=== PATIENT | male | born 1950 | race Caucasian/White ===

== ENCOUNTER 2021-02-18 17:51 | Observation (INO) | payer OTHER ==
--- OUTSIDE RECORDS SUMMARY | 2021-02-18 17:53 | XMS REPORT | Continuity of Care Document ---
:1950 Author Organization [facility] t Address [address] [place] [address] Care Team Providers Name Role Phone Unavailable Unavailable Unavailable Problems Condition Condition Condition Status Onset Resolution Last Treating Co mments Source Name Details Category Date Date Treatment Clinician Date Seasonal Seasonal Problem [facility] Chronic Chronic Problem Active [facility] kidney kidney [facility] - disease, disease, Memori a unspecifie unspecifie l d CKD d CKD Outpati stage stage ent Clinics Anal Anal Problem [facility] Prediabete Prediabete Problem Active [facility] Hypertensi Hypertensi Problem Active [facility] on, on, [facility] - unspecifie unspecifie Me moria d type d type l [facility] Bilateral Bilateral Problem Active [facility] low back low back [facility] - pain pain Memoria without without l sciatica, sciatica, Outp ati unspecifie unspecifie en t d d Clinics chronicity chronicity Snoring Snoring Problem Active [facility]ics Skin Skin Problem Active [facility] lesion lesion [facility] Hyperglyce Hyperglyce Problem Active [facility] jamir jamir [facility] Rash and Rash and Problem Active [facility] nonspecifi nonspecifi [facility] - c skin c skin Memoria eruption eruption l [facility] Hyperchole Hyperchole Problem Active [facility] sterolemia sterolemia [facility] k[facility] - [facility] History of History of Problem Active [facility] kidney kidney [facility] - stones stones [facility] Hepatitis Hepatitis Problem Active [facility] B [facility] Sinus Sinus Problem Active [facility] problem problem [facility] Induration Induration Diagnosis Active [facility] penis penis [facility] plastica plastica [facility] Benign Benign Diagnosis Active [facility] prostatic prostatic Luke s - hyperplasi hyperplasi Me moria a without a without l lower lower [facility] symptoms symptoms ED ED Problem Active [facility] (erectile (erectile Luke s - dysfunctio dysfunctio Me moria n) n) l [facility] Allergies, Adverse Reactions, Alerts This patient has no known allergies or adverse reactions. Medications Ordered Filled Start Stop Current Ordering Indication Dosage Frequency Signature Comments Components Source Medication Medication Date Date Medication? Clinician (SIG) Name Name Jhon Ferreira Yes Adeline [address] [facility] ne ne 12-18 [place] applicatio [facility] - Acetonide Acetonide 00:00: n to Mem oria 00 affected l area [facility] Metoprolol Metoprolol Yes Adeline [address] [facility] Succinate Succinate Con[place] L ukes - ER ER Memoria l [facility] Tessalon Tessalon Yes Adeline [address] Perles Perles Julia as needed [facility] - [facility] Levofloxaci Levofloxaci Yes Adeline [address] [facility] n n Julia [facility] Atorvastati Atorvastati Yes Adeline [address] [facility] n Calcium n Calcium Julia in evening [facility] ProAir HFA ProAir HFA Yes Adeline [address] [facility] [place] needed [facility] Amlodipine Amlodipine Yes Adeline [address] [facility] [address] Besylate Besylate Julia Chantal es - [facility] Lisinopril- Lisinopril- Yes Adeline [address] [facility] [address] Hydrochloro Hydrochloro Julia [facility] - thiazide thiazide [facility] Procedures This patient has no known procedures. Encounters Start End Encounter Admission Attending Care Care Encounter Source Date/Time Date/Time Type Type Clinicians Facility Department ID 2019-08-18 2019-08-18 [facility] [id number] [facility] 14:[facility]00 14:00:00 t Specialty/U B[facility] - Specialty rology Memori a /Urology Clinic l Clinic Outpati ent Clinics 2018-11-24 2018-11-24 Outpatient Sj Machado [id number] [facility] 13[facility] 13[facility]40[facility]00 [facility] Results This patient has no known results.
[2021-02-18 18:44] LABS: Absolute Lymphocytes (CBC) 2.1 K/uL (0.7-4.9); Basophils % 0.1 % (0-1.3); Hematocrit 43.2 % (39.6-49.0); MPV 7.7 fL (7.6-11.3); RBC Red Blood Cell Count 4.74 M/uL (4.33-5.43)
[2021-02-18 18:48] LABS: Protime INR 0.97
[2021-02-18] MEDS ORDERED: AMLODIPINE 5 MG TAB ONE (18:55)
--- NOTE | 2021-02-18 19:11 | RAD REPORT ---
EXAM DESCRIPTION: RAD - Chest Single View - 02/18/2021 6:31 pm CLINICAL HISTORY: weakness, shortness of breath COMPARISON: February 2017 TECHNIQUE: AP portable chest image was obtained 02/18/2021 6:31 pm . FINDINGS: Lungs are clear of focal finding. Interstitial pattern matches comparison. No hilar mass o r lymphadenopathy. Heart size has enlarged from prior imaging but without acute vascular engorgement. No measurable pleural effusion and no pneumothorax. No acute bony abnormality seen. No acute aortic findings suspected. IMPRESSION: No peripheral mass or consolidation. Interstitial pattern matches comparison. Cardiac silhouette is enlarged from prior imaging but still within normal range. Significant failure or volume overload not suspected.
[2021-02-18 19:15] LABS: ALT/SGPT 21 U/L (12-78); AST/SGOT 17 U/L (15-37); Albumin 4.1 g/dL (3.4-5.0); Alkaline Phosphatase 82 U/L (45-117); BUN Blood Urea Nitrogen 13 mg/dL (7-18); Bicarbonate 26 mmol/L (21-32); Bilirubin Direct 0.1 mg/dL (0-0.2); Bilirubin Total 0.4 mg/dL (0.2-1.0); Creatine Phosphokinase 205 U/L (39-308); Glucose Level 97 mg/dL (74-106); Magnesium 2.3 mg/dL (1.8-2.4); NT PRO-BNP 442 pg/mL (<125); Potassium 3.7 mmol/L (3.5-5.1); Protein, Total 7.8 g/dL (6.4-8.2); Sodium Level 143 mmol/L (136-145); Troponin (Emerg Dept Use Only) < 0.02 ng/mL (0.0-0.045)
--- NOTE | 2021-02-18 19:44 | RAD REPORT ---
EXAM DESCRIPTION: CT - Head Brain Wo Cont - 02/18/2021 7:22 pm CLINICAL HISTORY: DIZZINESS COMPARISON: Head angio dated 10/26/2020; Neck Angio dated 10/26/2020 TECHNIQUE: Axial 5 mm thick images of the head were obtained without IV contrast. All CT scans are performed using dose optimization technique as appropriate and may include automated exposure control or mA/KV adjustment according to patient size. FINDINGS: No intracranial hemorrhage, mass, edema or shift of mid-line structures. No acute cortical based infarction. No cortical edema or sulcal effacement. Atrophy changes are mild to moderate for a ge. Cerebral white matter chronic ischemic change is advanced. Chronic ischemic changes are seen in t he basal ganglia, left thalamus in the brainstem. No abnormal extra-axial fluid collections. Ventricl es are in proportion to the volume loss. Dense arterial tree calcifications are present. Mastoid air cells and visualized portions of the paranasal sinuses are clear. No acute bony findings. IMPRESSION: Negative non-contrast CT head examination acute finding. Atrophy changes are present up to moderate in severity with advanced chronic ischemic change as detai led. Chronic ischemic changes can mask nonhemorrhagic acute infarction. MR brain followup can be obtained if there is ongoing concern for acute ischemia.
--- NOTE | 2021-02-18 20:32 | EDPHYS ---
Physician Documentation [facility] Name: José Miguel Arzate Age: 70 yrs Sex: Male : 1950 Arrival Date: 02/18/2021 Time: 17:53 Bed 16 Private MD: ED Physician Ji Henning HPI: 02/18 18:03 This 70 yrs old Male presents to ER via Wheelchair with complaints of jmm Numbness - r side. 18:03 The patient's problem is reported as a facial droop, on right. Onset: The jmm symptoms/episode began/occurred gradually, 1 day(s) ago. Duration: This was a single incident. The symptoms are alleviated by nothing. The symptoms are aggravated by nothing. States Dangelo is a 70-year-old male with history of hypertension the presents emerged part with complaints of right-sided numbness and difficulty walking which occurred when he awoke from sleep around 4 AM on Thursday morning. Had to lean against the wall because he had the sensation that something was under his right foot. Patient states having continued mild weakness on the right side of his body. Since then.. Historical: - Allergies: 18:00 No Known Allergies; tw2 - Home Meds: 18:00 losartan oral [Active]; tw2 - PMHx: 18:00 Hypertensive disorder; tw2 - Immunization history:: Client reports receiving the 2nd dose of the Covid vaccine. - Social history:: Smoking status: Reported history of juuling and/or vaping. ROS: 18:03 Constitutional: Negative for fever, chills, and weight loss, Cardiovascular: Negative jmm for chest pain, palpitations, and edema, Respiratory: Negative for shortness of breath, cough, wheezing, and pleuritic chest pain. 18:03 Neuro: Positive for weakness. 18:03 All other systems are negative. Exam: 18:03 Radiologist reports: Negative CT jmm 18:03 Constitutional: This is a well developed, well nourished patient who is awake, alert, and in no acute distress. Head/Face: atraumatic. Eyes: EOMI, no conjunctival erythema appreciated ENT: Moist Mucus Membranes Neck: Trachea midline, Supple Chest/axilla: Normal chest wall appearance and motion. Cardiovascular: Regular rate and rhythm. No edema appreciated Respiratory: Normal respirations, no respiratory distress appreciated Abdomen/GI: Non distended, soft Back: Normal ROM Skin: General appearance color normal 18:03 Musculoskeletal/extremity: ROM: intact in all extremities. 18:03 Neuro: Orientation: is normal, Mentation: is normal, Memory: is normal, Cerebellar function: normal finger to nose testing. Vital Signs: 18:03 BP 215 / 110 LA; Pulse 67; Resp 18; Temp 98.8(TE); Pulse Ox 99% on R/A; Pain 0/10; tw2 18:03 BP 215 / 114 RA; tw2 18:59 BP 204 / 101; Pulse 64; Resp 17; Pulse Ox 98% on R/A; jt3 19:09 Weight 68.04 kg; jt3 19:42 BP 211 / 106; Pulse 54; Resp 18; Temp 98.8; Pulse Ox 99% on R/A; Pain 0/10; kc4 20:45 BP 217 / 107; Pulse 68; Resp 20; Temp 98.8(O); Pulse Ox 100% on R/A; Pain 0/10; kc4 21:20 BP 204 / 90; Pulse 52; Resp 18; Temp 98.7(O); Pulse Ox 100% ; Pain 0/10; kc4 22:06 BP 196 / 97; Pulse 56; Resp 18; Temp 98.7; Pulse Ox 100% on R/A; Pain 0/10; kc4 18:03 provider notified of vs and triage notes tw2 19:42 Provider Mickail notified of bp. pt denies any pain kc4 NIH Stroke Scale Scores: 18:03 NIHSS Score: 2 [facility] 18:50 NIHSS Score: 3 jt3 MDM: 18:35 Patient medically screened. [facility] 20:30 Data reviewed: vital signs, nurses notes. [facility] 20:30 Counseling: I had a detailed discussion with the patient and/or guardian regarding: the [facility] historical points, exam findings, and any diagnostic results supporting the discharge/admit diagnosis, lab results, radiology results, the need for further work-up and treatment in the hospital. ED course: I discussed the patient with Ms. Jose PA-C whom accepted the patient to Dr. Aurea granger. I did not administer TPA due to timeframe of the symptom.. 02/18 18:12 Order name: CBC with Diff; Complete Time: 18:54 rn 02/18 18:12 Order name: Protime (+inr); Complete Time: 18:54 02/18 18:12 Order name: Ptt, Activated; Complete Time: 18:54 / 18:13 Order name: Basic Metabolic Panel; Complete Time: 19:17 [facility] 02/18 18:13 Order name: CBC with Diff; Complete Time: 16:55 [facility] 02/18 18:13 Order name: LFT's; Complete Time: 19:17 [facility] 02/18 18:13 Order name: Magnesium; Complete Time: 19:17 [facility] 02/18 18:13 Order name: NT PRO-BNP; Complete Time: 19:17 [facility] 02/18 18:13 Order name: PT-INR; Complete Time: 16:55 [facility] 02/18 18:13 Order name: Troponin (emerg Dept Use Only); Complete Time: 19:17 [facility] 02/18 18:45 Order name: Creatine Phosphokinase; Complete Time: 19:17 [facility] 02/18 18:02 Order name: CT Head Brain wo Cont; Complete Time: 19:48 [facility] 02/18 18:12 Order name: EKG; Complete Time: 18:13 / 18:12 Order name: Accucheck; Complete Time: 18:54 15 18:12 Order name: Cardiac monitoring; Complete Time: 18:34 /15 18:12 Order name: EKG - Nurse/Tech; Complete Time: 18:54 /15 18:12 Order name: IV Saline Lock; Complete Time: 18:34 02/18 18:12 Order name: Labs collected and sent; Complete Time: 18:34 15 18:12 Order name: NPO; Complete Time: 18:34 02/18 18:13 Order name: XRAY Chest (1 view); Complete Time: 19:16 [facility] 02/18 18:13 Order name: EKG; Complete Time: 18:13 [facility] 02/18 18:49 Order name: Glucose, Ancillary Testing; Complete Time: 18:54 [facility] 02/18 20:07 Order name: CONS Physician Consult; Complete Time: 21:33 [facility] 02/18 20:15 Order name: SARS-COV-2 RT PCR (Document "Date of Onset" if Symptomatic); Complete Time: [facility] 16:55 02/18 18:12 Order name: O2 Per Protocol; Complete Time: 18:34 rn 02/18 18:12 Order name: O2 Sat Monitoring; Complete Time: 18:34 rn 02/18 18:12 Order name: Stroke Swallow Screen; Complete Time: 18:34 rn 02/18 18:13 Order name: Cardiac monitoring; Complete Time: 18:33 [facility] 02/18 18:13 Order name: EKG - Nurse/Tech; Complete Time: 18:36 [facility] 02/18 18:13 Order name: IV Saline Lock; Complete Time: 18:33 [facility] 02/18 18:13 Order name: Labs collected and sent; Complete Time: 18:33 [facility] 02/18 18:13 Order name: O2 Per Protocol; Complete Time: 18:33 [facility] 02/18 18:13 Order name: O2 Sat Monitoring; Complete Time: 18:33 [facility] Administered Medications: 18:59 Drug: Norvasc (amlodipine) 5 mg Route: PO; jt3 19:17 Follow up: Response: No adverse reaction jt3 19:46 Follow up: Response: No adverse reaction; Blood pressure is unchanged kc4 20:44 Drug: Aspirin Chewable Tablet 324 mg Route: PO; kc4 22:17 Follow up: Response: No adverse reaction kc4 20:45 Drug: foLIC Acid 1 mg Route: IVPB; Site: right antecubital; kc4 22:16 Follow up: IV Status: Completed infusion kc4 22:17 Follow up: Response: No adverse reaction kc4 Disposition: 02/19 07:04 Co-signature as Attending Physician, Ji Henning MD I agree with the assessment and rn plan of care. Attestation: The patient's history, exam findings, diagnostics, and a summary of any interventions or procedures was reviewed in detail with Anselmo MERINO. Disposition Summary: 02/18/21 20:31 Hospitalization Ordered Hospitalization Status: Inpatient Admission [facility] Provider: Pérez Villar Location: Telemetry/MedSurg (Inpatient) [facility] Condition: Stable jm Problem: new jmm Symptoms: are unchanged jmm Bed/Room Type: Standard [facility] Room Assignment: 217(02/18/21 21:44) Diagnosis - Cerebral infarction, unspecified [facility] Forms: - Medication Reconciliation Form m - SBAR form [facility] NIH Stroke Scale - NIH Stroke Score Date: 02/18/2021 Time: 18:03 Total Score = 2 1a. Level of Consciousness (LOC) - 0(Alert) 1b. Level of Consciousness (LOC) (Month \\T\\ Age) - 0(Both) 1c. LOC Commands (Open \\T\\ Closes Eyes/Tracer Powder Blender) - 0(Both) 2. Best Gaze (Lateral Gaze Paresis) - 0(Normal) 3. Visual Field Loss - 0(No visual loss) 4. Facial Palsy - 0(Normal) 5a. Left Arm: Motor (10-second hold) - 0(No drift) 5b. Right Arm: Motor (10-second hold) - 1(Drift) 6a. Left Leg: Motor (5-second hold - always test supine) - 0(No drift) 6b. Right Leg: Motor (5-second hold - always test supine) - 1(Drift) 7. Limb Ataxia (finger/nose \\T\\ heel/mathews - test with eyes open) - 0(Absent) 8. Sensory Loss (pinprick arms/legs/face) - 0(Normal) 9. Best Language: Aphasia (description/naming/reading) - 0(No aphasia) 10. Dysarthria (speech clarity - read or repeat words) - 0(Normal) 11. Extinction and Inattention (visual/tactile/auditory/spatial/personal) - 0(No abnormality) Initials: [facility] NIH Stroke Scale - NIH Stroke Score Date: 02/18/2021 Time: 18:50 Total Score = 3 1a. Level of Consciousness (LOC) - 0(Alert) 1b. Level of Consciousness (LOC) (Month \\T\\ Age) - 0(Both) 1c. LOC Commands (Open \\T\\ Closes Eyes/Tracer Powder Blender) - 0(Both) 2. Best Gaze (Lateral Gaze Paresis) - 0(Normal) 3. Visual Field Loss - 0(No visual loss) 4. Facial Palsy - 0(Normal) 5a. Left Arm: Motor (10-second hold) - 0(No drift) 5b. Right Arm: Motor (10-second hold) - 1(Drift) 6a. Left Leg: Motor (5-second hold - always test supine) - 0(No drift) 6b. Right Leg: Motor (5-second hold - always test supine) - 1(Drift) 7. Limb Ataxia (finger/nose \\T\\ heel/mathews - test with eyes open) - 0(Absent) 8. Sensory Loss (pinprick arms/legs/face) - 1(Mild to moderate loss) 9. Best Language: Aphasia (description/naming/reading) - 0(No aphasia) 10. Dysarthria (speech clarity - read or repeat words) - 0(Normal) 11. Extinction and Inattention (visual/tactile/auditory/spatial/personal) - 0(No abnormality) Initials: jt3 Signatures: Dispatcher [employer] EDMS Anselmo Bailon PA PA jmm Nieto, Roman, MD MD rn Garcia, Cindy RN RN Eunice Woods RN RN tw2 Christina Gill [facility] Zach Li RN RN jt3 Corrections: (The following items were deleted from the chart) 02/18 18:45 18:13 BASIC METABOLIC PANEL+C.LAB.BRZ ordered. EDMS EDMS 18:45 18:13 CREATINE PHOSPHOKINASE+C.LAB.BRZ ordered. EDMS EDMS 18:45 18:13 TROPONIN (EMERG DEPT USE ONLY)+C.LAB.BRZ ordered. EDMS EDMS 21:44 20:31 kaitlynn grullon
--- NOTE | 2021-02-18 20:32 | ER ---
Nurse's Notes [facility] Name: José Miguel Arzate Age: 70 yrs Sex: Male : 1950 Arrival Date: 02/18/2021 Time: 17:53 Bed 16 Private MD: Diagnosis: Cerebral infarction, unspecified Presentation: 02/18 17:56 Chief complaint: Patient states: started Thursday i got up to go to the bathroom about 4 tw2 am, when i was finished. i went to turn around i denisse stumbled. my right foot felt like it was thick or it had a pad on it. i went to lay back down. i also feel tingling and numbness in my face since Thursday and feel like my right foot is trying to turn inward. 18:03 Coronavirus screen: At this time, the client does not indicate any symptoms associated tw2 with coronavirus-19. Ebola Screen: Patient denies travel to an Ebola-affected area in the 21 days before illness onset. Initial Sepsis Screen: Does the patient meet any 2 criteria? No. Patient's initial sepsis screen is negative. Does the patient have a suspected source of infection? No. Patient's initial sepsis screen is negative. Risk Assessment: Do you want to hurt yourself or someone else? Patient reports no desire to harm self or others. Note provider notified of triage vs and assessment. Onset of symptoms was February 18, 2021. 18:03 Method Of Arrival: Wheelchair tw2 18:03 Acuity: KAY 2 tw2 Triage Assessment: 18:03 General: Appears in no apparent distress. slender, well groomed, Behavior is calm, tw2 cooperative, appropriate for age. Pain: Denies pain. 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 tw2 Historical: - Allergies: 18:00 No Known Allergies; tw2 - Home Meds: 18:00 losartan oral [Active]; tw2 - PMHx: 18:00 Hypertensive disorder; tw2 - Immunization history:: Client reports receiving the 2nd dose of the Covid vaccine. - Social history:: Smoking status: Reported history of juuling and/or vaping. Screenin:47 Abuse screen: Denies threats or abuse. Denies injuries from another. Nutritional jt3 screening: No deficits noted. Tuberculosis screening: No symptoms or risk factors identified. Fall Risk None identified. 19:09 Patient has been NPO before screening. The patient is alert, able to follow commands. jt3 The patient does not exhibit slurred or garbled speech The patient is not exhibiting difficulty speaking. The patient does not exhibit difficulty understanding words. The patient is able to swallow own secretions with no drooling or need for suction. Patient tolerated one teaspoon of water. No drooling, immediate coughing, gurgling, or clearing of the throat was noted. The patient tolerated 90mL of water. No drooling, immediate coughing, gurgling, or clearing of the throat was noted. The patient passed the bedside swallow screening. Oral medications may be given as ordered. Contact Physician for further diet orders. Assessment: 18:47 General: Appears in no apparent distress. Behavior is calm, cooperative. Pain: Denies jt3 pain. Neuro: Level of Consciousness is awake, alert, obeys commands, Oriented to person, place, time, situation, Hired Worker are weak on right Moves all extremities. Gait is steady, Speech is normal, Facial symmetry appears normal. Cardiovascular: Rhythm is sinus rhythm. Respiratory: No deficits noted. GI: No deficits noted. 21:00 General: Appears in no apparent distress. comfortable, slender, Behavior is calm, kc4 cooperative, appropriate for age. Pain: Denies pain. 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 Gait is steady, Speech is normal, Facial symmetry appears normal, Pupils are PERRLA, Intact. Cardiovascular: Rhythm is sinus rhythm. Respiratory: No deficits noted. GI: No deficits noted. : No deficits noted. No signs and/or symptoms were reported regarding the genitourinary system. EENT: No deficits noted. No signs and/or symptoms were reported regarding the EENT system. Musculoskeletal: No deficits noted. No signs and/or symptoms reported regarding the musculoskeletal system. 22:14 Derm: No deficits noted. No signs and/or symptoms reported regarding the dermatologic kc4 system. Vital Signs: 18:03 BP 215 / 110 LA; Pulse 67; Resp 18; Temp 98.8(TE); Pulse Ox 99% on R/A; Pain 0/10; tw2 18:03 BP 215 / 114 RA; tw2 18:59 BP 204 / 101; Pulse 64; Resp 17; Pulse Ox 98% on R/A; jt3 19:09 Weight 68.04 kg; jt3 19:42 BP 211 / 106; Pulse 54; Resp 18; Temp 98.8; Pulse Ox 99% on R/A; Pain 0/10; kc4 20:45 BP 217 / 107; Pulse 68; Resp 20; Temp 98.8(O); Pulse Ox 100% on R/A; Pain 0/10; kc4 21:20 BP 204 / 90; Pulse 52; Resp 18; Temp 98.7(O); Pulse Ox 100% ; Pain 0/10; kc4 22:06 BP 196 / 97; Pulse 56; Resp 18; Temp 98.7; Pulse Ox 100% on R/A; Pain 0/10; kc4 18:03 provider notified of vs and triage notes tw2 19:42 Provider Ortegakail notified of bp. pt denies any pain kc4 NIH Stroke Scale Scores: 18:03 NIHSS Score: 2 jmm 18:50 NIHSS Score: 3 jt3 ED Course: 17:53 Patient arrived in ED. as 18:00 Arm band placed on. tw2 18:05 Triage completed. tw2 18:10 Zach Li, RN is Primary Nurse. jt3 18:12 Anselmo Bailon PA is PHCP. jmm 18:12 Ji Henning MD is Attending Physician. jmm 18:31 XRAY Chest (1 view) In Process Unspecified. EDMS 18:36 Patient has correct armband on for positive identification. Placed in gown. Bed in low mh5 position. Call light in reach. Side rails up X 1. Warm blanket given. senior oracle pl sql developer on. Pulse ox on. NIBP on. 18:36 Initial lab(s) drawn, by ED staff, sent to lab. EKG done, by ED staff, reviewed by Anselmo MERINO. 18:39 Inserted saline lock: 20 gauge in left antecubital area, using aseptic technique. Blood jt3 collected. 18:47 No provider procedures requiring assistance completed. jt3 19:22 CT Head Brain wo Cont In Process Unspecified. EDMS 20:31 Pérez Villar is Hospitalizing Provider. jmm 20:44 SARS-COV-2 RT PCR (Document "Date of Onset" if Symptomatic) Sent. kc4 22:14 IV is patent, is intact. kc4 22:16 Patient admitted, IV remains in place. kc4 Administered Medications: 18:59 Drug: Norvasc (amlodipine) 5 mg Route: PO; jt3 19:17 Follow up: Response: No adverse reaction jt3 19:46 Follow up: Response: No adverse reaction; Blood pressure is unchanged kc4 20:44 Drug: Aspirin Chewable Tablet 324 mg Route: PO; kc4 22:17 Follow up: Response: No adverse reaction kc4 20:45 Drug: foLIC Acid 1 mg Route: IVPB; Site: right antecubital; kc4 22:16 Follow up: IV Status: Completed infusion kc4 22:17 Follow up: Response: No adverse reaction kc4 Outcome: 20:31 Decision to Hospitalize by Provider. jm 22:09 Condition: stable kc4 22:15 Admitted to Tele accompanied by tech, via wheelchair, room 217, with chart, Report kc4 called to Milo 22:15 Instructed on the need for admit. 22:17 Patient left the ED. kc4 NIH Stroke Scale - NIH Stroke Score Date: 02/18/2021 Time: 18:03 Total Score = 2 1a. Level of Consciousness (LOC) - 0(Alert) 1b. Level of Consciousness (LOC) (Month \\T\\ Age) - 0(Both) 1c. LOC Commands (Open \\T\\ Closes Eyes/Carpentry Supervisor) - 0(Both) 2. Best Gaze (Lateral Gaze Paresis) - 0(Normal) 3. Visual Field Loss - 0(No visual loss) 4. Facial Palsy - 0(Normal) 5a. Left Arm: Motor (10-second hold) - 0(No drift) 5b. Right Arm: Motor (10-second hold) - 1(Drift) 6a. Left Leg: Motor (5-second hold - always test supine) - 0(No drift) 6b. Right Leg: Motor (5-second hold - always test supine) - 1(Drift) 7. Limb Ataxia (finger/nose \\T\\ heel/mathews - test with eyes open) - 0(Absent) 8. Sensory Loss (pinprick arms/legs/face) - 0(Normal) 9. Best Language: Aphasia (description/naming/reading) - 0(No aphasia) 10. Dysarthria (speech clarity - read or repeat words) - 0(Normal) 11. Extinction and Inattention (visual/tactile/auditory/spatial/personal) - 0(No abnormality) Initials: kaitlynn NIH Stroke Scale - NIH Stroke Score Date: 02/18/2021 Time: 18:50 Total Score = 3 1a. Level of Consciousness (LOC) - 0(Alert) 1b. Level of Consciousness (LOC) (Month \\T\\ Age) - 0(Both) 1c. LOC Commands (Open \\T\\ Closes Eyes/Carpentry Supervisor) - 0(Both) 2. Best Gaze (Lateral Gaze Paresis) - 0(Normal) 3. Visual Field Loss - 0(No visual loss) 4. Facial Palsy - 0(Normal) 5a. Left Arm: Motor (10-second hold) - 0(No drift) 5b. Right Arm: Motor (10-second hold) - 1(Drift) 6a. Left Leg: Motor (5-second hold - always test supine) - 0(No drift) 6b. Right Leg: Motor (5-second hold - always test supine) - 1(Drift) 7. Limb Ataxia (finger/nose \\T\\ heel/mathews - test with eyes open) - 0(Absent) 8. Sensory Loss (pinprick arms/legs/face) - 1(Mild to moderate loss) 9. Best Language: Aphasia (description/naming/reading) - 0(No aphasia) 10. Dysarthria (speech clarity - read or repeat words) - 0(Normal) 11. Extinction and Inattention (visual/tactile/auditory/spatial/personal) - 0(No abnormality) Initials: jt3 Signatures: Dispatcher [employer] EDMS Anselmo Bailon PA PA jmm Martinez, Amelia as Wise, Tara, RN RN tw2 Yusra Kelly [facility] Zach Li RN RN jt3 Corrections: (The following items were deleted from the chart) 18:05 17:56 Chief complaint: Patient states: started Thursday i got up to go to the 2 bathroom about 4 am, when i was finished. i went to turn around i denisse stumbled. my right foot felt like it was thick or it had a pad on it. i went to lay back down. tw2
[2021-02-18] MEDS ORDERED: ASPIRIN 81 MG CHEWABLE TABLET ONE (20:37)
[2021-02-18] MEDS ORDERED: FOLIC ACID 5 MG/ML VIAL ONE (20:40)
--- NOTE | 2021-02-18 21:43 | P.HP ---
Certification for Inpatient Patient admitted to: Observation With expected LOS: <2 Midnights Patient will require the following post-hospital care: None Practitioner: I am a practitioner with admitting privileges, knowledge of patient current condition, hospital course, and medical plan of care. Services: Services provided to patient in accordance with Admission requirements found in Title 42 Section 412.3 of the Code of Federal Regulations Patient History Date of Service: 02/18/21 Primary Care Provider: Sonia Reason for admission: R sided weakness History of Present Illness: Mr. Arzate is a 70 yo M with HTN who presents with R sided weakness beginning at 4am on Thursday. He woke up to go to the bathroom and then remembers bumping against the wall. He says he had weakness in his right food causing him to limp. He reports tingling in his R arm and shoulder and numbness on the R side of his face. He says he returned to sleep and when he woke up later on he didn't come to the ED because he was still able to walk. He says he thought his symptoms were improving. Denies pain. BP has been significantly elevated in the ED, but he says at baseline his BP is uncontrolled. He takes losartan BID at home. Patient recently have full neurological workup done by PCP for unsteady gait, no findings at that time. CT head without acute findings. Allergies No Known Allergies Allergy (Verified 06/04/16 10:41) Home Medications: Codeine/APAP [Tylenol W/Codeine #3 tab] 1 tab PO Q4HP PRN #30 tab 06/04/16 Sulfamethoxazole/Trimethoprim [Bactrim Ds Tablet] 1 each PO BID #10 tablet 06/04/16 - Past Medical/Surgical History -: HTN -: hernia repair - Family History Father -: Heart disease Brother -: Stroke - Social History Smoking Status: Current every day smoker (smokeless tobacco) Alcohol use: Yes CD- Drugs: No Caffeine use: Yes Place of Residence: Home Review of Systems 10-point ROS is otherwise unremarkable General: Weakness Eyes: Unremarkable ENT: Unremarkable Respiratory: Unremarkable Cardiovascular: Unremarkable Gastrointestinal: Unremarkable Genitourinary: Unremarkable Musculoskeletal: Unremarkable Integumentary: Unremarkable Neurological: Weakness, Numbness, Incoordination, As per HPI Lymphatics: Unremarkable Physical Examination - Physical Exam General: Alert, In no apparent distress HEENT: Atraumatic, PERRLA, Mucous membr. moist/pink, EOMI, Sclerae nonicteric Neck: Supple, 2+ carotid pulse no bruit, No LAD, Without JVD or thyroid abnormality Respiratory: Clear to auscultation bilaterally, Normal air movement Cardiovascular: Regular rate/rhythm, Normal S1 S2 Gastrointestinal: Normal bowel sounds, No tenderness Musculoskeletal: No tenderness Integumentary: No rashes Neurological: Normal speech, Normal tone, Cranial nerves 3-12 intact, Normal affect, Abnormal strength, Abnormal sensation Lymphatics: No axilla or inguinal lymphadenopathy - Studies Laboratory Data (last 24 hrs) 02/18/21 18:29: Sodium 143, Potassium 3.7, BUN 13, Creatinine 1.02, Glucose 97, Magnesium 2.3, Total Bilirubin 0.4, AST 17, ALT 21, Alkaline Phosphatase 82 02/18/21 18:29: PT 11.2, INR 0.97, APTT 30.1 02/18/21 18:29: WBC 7.00, Hgb 14.5, Hct 43.2, Plt Count 213 02/18/21 18:12: Sodium Cancelled, Potassium Cancelled, BUN Cancelled, Creatinine Cancelled, Glucose Cancelled Assessment and Plan - Problems (Diagnosis) (1) Hypertensive urgency Current Visit: Yes Status: Acute (2) Right sided weakness Current Visit: Yes Status: Acute - Plan neurology consulted NPO if fails bedside swallow MRI stroke protocol, ECHO, carotid US in the AM PT consult, speech consult daily ASA, folic acid, statin lipid panel pending permissive HTN until MRI result reconcile and continue home medications DVT ppx Discharge Plan: Home Plan to discharge in: 24 Hours - Advance Directives Does patient have a Living Will: No Does patient have a Durable POA for Healthcare: No - Code Status/Comfort Care Code Status Assessed: Yes (full code ) Critical Care: No Time Spent Managing Pts Care (In Minutes): 70
[2021-02-18 21:58] LABS: Absolute Lymphocytes (CBC) 2.2 K/uL (0.7-4.9); Basophils % 1.3 % (0-1.3); Hematocrit 42.4 % (39.6-49.0); Lymphocytes % 30.9 % (15.3-44.8); MPV 7.6 fL (7.6-11.3); RBC Red Blood Cell Count 4.64 M/uL (4.33-5.43)
[2021-02-18 21:59] LABS: Protime INR 1.03
[2021-02-18] MEDS ORDERED: ACETAMINOPHEN 500 MG TAB PO PRN (22:16)
[2021-02-18] MEDS ORDERED: HYDRALAZINE HCL 20 MG/ML VIAL IV PRN (22:16)
[2021-02-18] MEDS ORDERED: ATORVASTATIN 20 MG TAB PO SCH (22:16)
[2021-02-18] MEDS ORDERED: ONDANSETRON 4 MG/2 ML VIAL IV PRN (22:16)
[2021-02-18] MEDS ORDERED: ALBUTEROL 2.5 MG/3 ML NEB SOL NEB PRN (22:16)
[2021-02-18 23:02] VITALS: BMI 21.1
[2021-02-19 00:45] LABS: Barbiturates NEGATIVE (NEGATIVE); Benzodiazepines NEGATIVE (NEGATIVE); Cocaine NEGATIVE (NEGATIVE); METHAMPHETAM NEGATIVE (NEGATIVE); Methadone NEGATIVE (NEGATIVE); Opiates NEGATIVE (NEGATIVE); Phencyclidine NEGATIVE (NEGATIVE); THC Cannibis NEGATIVE (NEGATIVE)
[2021-02-19 00:53] LABS: Urine Appearance Clear (Clear); Urine Bilirubin Negative (Negative); Urine Blood Trace-intact (Negative); Urine Color Yellow (Yellow); Urine Glucose Negative (Negative); Urine Microscopic Reflex ORDER UMIC; Urine Protein Negative (Negative); Urine Specific Gravity 1.015 (1.005-1.030); Urine Urobilinogen 0.2 mg/dL (0.2-1.0)
[2021-02-19 01:11] LABS: Urine Bacteria <20 /HPF (NONE SEEN); Urine RBC <5 /HPF (NONE SEEN)
[2021-02-19] MEDS ORDERED: METOPROLOL TAR 25 MG TAB PO ONE (01:14)
[2021-02-19 03:57] LABS: Absolute Lymphocytes (CBC) 2.2 K/uL (0.7-4.9); Basophils % 1.3 % (0-1.3); Hematocrit 46.6 % (39.6-49.0); Lymphocytes % 29.2 % (15.3-44.8); MPV 7.9 fL (7.6-11.3)
[2021-02-19 04:19] LABS: ALT/SGPT 22 U/L (12-78); AST/SGOT 17 U/L (15-37); Albumin 4.1 g/dL (3.4-5.0); Alkaline Phosphatase 90 U/L (45-117); BUN Blood Urea Nitrogen 12 mg/dL (7-18); Bicarbonate 27 mmol/L (21-32); Bilirubin Total 0.6 mg/dL (0.2-1.0); Glucose Level 108 mg/dL (74-106); HDL Cholesterol 91 mg/dL (40-60); LDL Cholesterol, Calculated 112 (<130); Magnesium 2.4 mg/dL (1.8-2.4); Phosphorus 2.8 mg/dL (2.5-4.9); Potassium 3.4 mmol/L (3.5-5.1); Protein, Total 7.9 g/dL (6.4-8.2); Sodium Level 142 mmol/L (136-145); T4,Total 8.1 ug/dL (4.5-12.1); Troponin I < 0.02 ng/mL (0.0-0.045)
[2021-02-19] MEDS ORDERED: POTASSIUM CL SA 10 MEQ TAB PO ONE (04:42)
--- NOTE | 2021-02-19 07:36 | RAD REPORT ---
EXAM DESCRIPTION: USCarotid Artery Izadlyskq67/16/2021 12:30 am CLINICAL HISTORY: Right-sided weakness COMPARISON: None FINDINGS: The velocity of the right internal carotid artery equals 110 cm/sec. The right ICA/CCA rat io 1.7 The velocity of the left internal carotid artery equals 148 cm/sec. The left ICA/CCA ratio 2 Mild plaque is present within the common and internal carotid arteries. Moderate plaque within the proximal external carotid arteries The vertebral arteries demonstrate antegrade flow IMPRESSION: Mild plaque within the common and internal carotid arteries without evidence of a hemody namically significant stenosis NASCET criteria used. Mild 0-49% stenosis Moderate 50-69% stenosis Severe 70-99% stenosis
[2021-02-19] MEDS ORDERED: ENOXAPARIN 40 MG/0.4 ML SQ SCH (09:00)
[2021-02-19] MEDS ORDERED: ASPIRIN EC 81 MG TAB PO SCH (09:00)
[2021-02-19] MEDS ORDERED: FOLIC ACID 1 MG TABLET PO SCH (09:00)
[2021-02-19 10:20] VITALS: O2SAT 96
--- NOTE | 2021-02-19 12:38 | RAD REPORT ---
EXAM DESCRIPTION: MRI - Brain W/Wo Cont - 02/19/2021 10:26 am COMPARISON: head CT February 18, 2021 TECHNIQUE: Axial, sagittal, and coronal magnetic images of the brain were obtained. 20 cc MultiHance administered intravenously FINDINGS: Moderate signal within periventricular, deep and subcortical white matter probably ischemi c changes secondary to small vessel disease The ventricles are normal in caliber. Diffusion-weighted/ ADC mapping sequences demonstrate 9 millimeter area of abnormal signal within the left thalamus consistent with infarction. No abnormal enhancement within the brain is seen. An extra-axial fluid collection is not noted. Fluid within the sinuses/mastoids is not seen IMPRESSION: 9 millimeter acute infarction left thalamus
--- NOTE | 2021-02-19 12:42 | RAD REPORT ---
EXAM DESCRIPTION: MRI - MRA Head Wo Cont - 02/19/2021 10:26 am CLINICAL HISTORY: Right sided weakness COMPARISON: None. TECHNIQUE: Magnetic resonance angiogram was performed. 3D MIPS reconstruction performed FINDINGS: A few areas of narrowing involving right and left posterior cerebral artery is probably ch ronic. The anterior cerebral, middle cerebral, distal internal carotid and basilar arteries do not demonstra te a significant stenosis. An aneurysm is not displayed. IMPRESSION: No acute abnormality is displayed
--- NOTE | 2021-02-19 12:44 | RAD REPORT ---
EXAM DESCRIPTION: MRI - MRA Neck W/Wo Cont - 02/19/2021 10:27 am CLINICAL HISTORY: Right-sided weakness COMPARISON: None. TECHNIQUE: Magnetic resonance angiogram of the neck was performed. 15 cc MultiHance was administered intravenously. 3D MIPS reconstruction performed FINDINGS: Mild plaque is present within common carotid internal carotid arteries bilaterally. Mild to moderate plaque within proximal external carotid arteries bilaterally. The vertebral arteries are codominant without visualization of an abnormality. IMPRESSION: Mild plaque within common and internal carotid arteries bilaterally NASCET criteria used. Mild 0-49% stenosis Moderate 50-69% stenosis Severe 70-99% stenosis
--- NOTE | 2021-02-19 16:53 | EKG ---
Test Date: 2021-02-18 Test Time: 18:50:17 3D Specialist: MARI MEASUREMENT RESULTS: Intervals: Rate: 61 PA: 140 QRSD: 98 QT: 460 QTc: 463 [place]: P: 53 PA: 140 QRS: 69 T: 79 INTERPRETIVE STATEMENTS: Sinus rhythm with premature atrial complexes Incomplete right bundle branch block Moderate voltage criteria for LVH, may be normal variant Cannot rule out Septal infarct, age undetermined Abnormal ECG Compared to ECG 06/04/2016 08:48:31 Atrial premature complex(es) now present Incomplete right bundle-branch block now present Myocardial infarct finding now present Sinus bradycardia no longer present Electronically Signed On 02-19-21 16:51:11 CRIME LAB TECHNICIAN by Ramakrishna Manzo
--- NOTE | 2021-02-19 16:53 | EKG ---
Test Date: 2021-02-19 Test Time: 00:03:34 Public Works Manager: AF MEASUREMENT RESULTS: Intervals: Rate: 103 MT: QRSD: 98 QT: 380 QTc: 497 [place]: P: MT: QRS: 25 T: 39 INTERPRETIVE STATEMENTS: Atrial fibrillation with rapid ventricular response with premature ventricular or aberrantly conducted complexes Incomplete right bundle branch block Minimal voltage criteria for LVH, may be normal variant Nonspecific ST and T wave abnormality, probably digitalis effect Abnormal ECG Compared to ECG 02/19/2021 00:02:49 Left ventricular hypertrophy now present Prolonged QT interval no longer present ST (T wave) deviation still present Electronically Signed On 02-19-21 16:51:06 DIVISIONAL MERCHANDISING MANAGER by Ramakrishna Manzo
--- NOTE | 2021-02-19 16:53 | EKG ---
Test Date: 2021-02-19 Test Time: 00:02:49 Founder And Chief Executive Officer: AF MEASUREMENT RESULTS: Intervals: Rate: 98 [place]: QRSD: 96 QT: 384 QTc: 490 [place]: P: DE: QRS: 12 T: 14 INTERPRETIVE STATEMENTS: Atrial fibrillation with premature ventricular or aberrantly conducted complexes Incomplete right bundle branch block Nonspecific ST abnormality, probably digitalis effect Prolonged QT Abnormal ECG Compared to ECG 06/04/2016 08:48:31 Ventricular premature complex(es) now present Incomplete right bundle-branch block now present ST (T wave) deviation now present Prolonged QT interval now present Sinus bradycardia no longer present Left ventricular hypertrophy no longer present Electronically Signed On 02-19-21 16:51:07 REMOTE INPATIENT CODER by Ramakrishna Manzo
--- NOTE | 2021-02-19 17:05 | P.DS ---
Admission Date: 02/18/21 Discharge Date: 02/19/21 Primary Care Provider: Sonia Disposition: ROUTINE DISCHARGE Discharge Condition: FAIR Reason for Admission: R sided weakness Brief History of Present Illness: Mr. Arzate is a 70 yo M with HTN who presents with R sided weakness beginning at 4am on Thursday. He woke up to go to the bathroom and then remembers bumping against the wall. He says he had weakness in his right food causing him to limp. He reports tingling in his R arm and shoulder and numbness on the R side of his face. He says he returned to sleep and when he woke up later on he didn't come to the ED because he was still able to walk. He says he thought his symptoms were improving. Denies pain. BP has been significantly elevated in the ED, but he says at baseline his BP is uncontrolled. He takes losartan BID at home. Patient recently have full neurological workup done by PCP for unsteady gait, no findings at that time. CT head without acute findings. Patient hospitalized for further evaluation. Hospital Course: Patient placed under observation on the medical floor. Work-up for stroke including MRI of the brain was done which reported acute CVA in the left t halamus. MRA of neck and brain unremarkable, carotid Doppler unremarkable. Patient seen in consultation by neurology Dr. Vargas. Patient ambulating with no assistance and currently with no symptoms. Lipid profile shows elevated LDL and total cholesterol. He is discharged with aspirin, folic acid, Plavix and high-dose Lipitor. He will follow with Dr. Vargas as outpatient. Vital Signs/Physical Exam: Temp Pulse Resp BP Pulse Ox 97.6 F 99 H 18 181/85 H 98 02/19/21 12:00 02/19/21 12:00 02/19/21 12:00 02/19/21 12:00 02/19/21 12:00 General: Alert, In no apparent distress, Oriented x3 HEENT: Mucous membr. moist/pink Neck: 2+ carotid pulse no bruit, JVD not distended Respiratory: Clear to auscultation bilaterally, Normal air movement Cardiovascular: No edema, Regular rate/rhythm, Normal S1 S2, No murmurs Capillary refill: <2 Seconds Gastrointestinal: Normal bowel sounds, Soft and benign, Non-distended Musculoskeletal: No swelling, No tenderness Integumentary: No rashes Neurological: Normal strength at 5/5 x4 extr Laboratory Data at Discharge: WBC 7.60 K/uL (4.3-10.9) 02/19/21 03:14 Hgb 15.9 g/dL (13.6-17.9) 02/19/21 03:14 Hct 46.6 % (39.6-49.0) 02/19/21 03:14 Plt Count 208 K/uL (152-406) 02/19/21 03:14 PT 11.8 SECONDS (9.5-12.5) 02/18/21 21:42 INR 1.03 02/18/21 21:42 APTT 30.1 SECONDS (24.3-36.9) 02/18/21 18:29 Sodium 142 mmol/L (136-145) 02/19/21 03:14 Potassium Cancelled 02/19/21 15:00 BUN 12 mg/dL (7-18) 02/19/21 03:14 Creatinine 0.99 mg/dL (0.55-1.3) 02/19/21 03:14 Glucose 108 mg/dL (74-106) H 02/19/21 03:14 Phosphorus 2.8 mg/dL (2.5-4.9) 02/19/21 03:14 Magnesium 2.4 mg/dL (1.8-2.4) 02/19/21 03:14 Total Bilirubin 0.6 mg/dL (0.2-1.0) 02/19/21 03:14 AST 17 U/L (15-37) 02/19/21 03:14 ALT 22 U/L (12-78) 02/19/21 03:14 Alkaline Phosphatase 90 U/L (45-117) 02/19/21 03:14 Troponin I < 0.02 ng/mL (0.0-0.045) 02/19/21 03:14 Triglycerides 58 mg/dL (<150) 02/19/21 03:14 Cholesterol 215 mg/dL (<200) H 02/19/21 03:14 HDL Cholesterol 91 mg/dL (40-60) H 02/19/21 03:14 Cholesterol/HDL Ratio 2.36 02/19/21 03:14 Home Medications: Losartan Potassium 25 mg PO BID 02/18/21 Aspirin [Aspirin EC 81 MG] 81 mg PO DAILY #30 tablet. 02/19/21 Atorvastatin Calcium [Lipitor] 80 mg PO BEDTIME #30 tab 02/19/21 Clopidogrel Bisulfate [Plavix] 75 mg PO DAILY #30 tablet 02/19/21 Folic Acid 1 mg PO DAILY #30 tablet 02/19/21 New Medications: Aspirin [Aspirin EC 81 MG] 81 mg PO DAILY #30 tablet. Folic Acid 1 mg PO DAILY #30 tablet Atorvastatin Calcium [Lipitor] 80 mg PO BEDTIME #30 tab Clopidogrel Bisulfate [Plavix] 75 mg PO DAILY #30 tablet Diet: AHA Activity: Ad wilfredo Followup: Gael Edward PA [Primary Care Provider] - 1 Week Waylon Vargas MD [ASSOCIATE-ACTIVE - CAN ADMIT] -
[2021-02-19 17:10] VITALS: BP 189/92; TEMP 97.5
--- NOTE | 2021-02-19 19:47 | CON ---
Reason For Consultation: Consultation called because of stroke. History Of Present Illness: Mr. Arzate is a 70-year-old patient with hypertension, who is not on medi cation, who comes with stroke-like symptoms. His symptoms began on Thursday, two days before he came t o the hospital for admission. It began around 7 a.m. when he woke up and started to go to [facility], noted he felt like the right leg was not his as though he was wearing some kind of sock or boot, there was something thick beneath his foot. He could not place the leg where he wanted to and did bu mp into things on the right side. He denied any problems with his right hand or face. Later, he did not seek medical attention, but went back to sleep and woke up, then noticed there were some tinglin g and unusual sensations in his arm and his face as well as the leg. He did go back to sleep again a fter he woke up second time and then noticed his symptoms were worse and he decided to come to the [facility]. At [facility], his blood pressure was very elevated and although he was supposed to be on losartan twice daily, apparently was not taking any and he was not taking an aspiri n daily. Head CT scan showed no acute ischemic or hemorrhagic change. His highest NIH Stroke Scale was 3 for the right upper and lower extremity drift with sensory loss in the right upper and lower ex tremity. Since the patient was well outside the window for tPA and in intra-arterial intervention, t hose factors did not factor in his management. He did receive aspirin, folic acid, high-dose statin, and his blood pressure was managed. While he was in the emergency room, he did have very elevated b lood pressures with systolic over 200 and diastolic around 217/107 and was gingerly decreased to the 150s over 90s in two days and now, he still has episodes of currently actually 189/92, pulse 84. The patient said he had been hospitalized and received aspirin. His symptoms have resolved to little in coordination in the right lower extremity. He reports subtle weakness in the right lower extremity. Right upper extremity seems to be back to his baseline. His workup included a carotid Doppler study showing no hemodynamically significant stenosis. He has echocardiogram of the heart. His electrocardiogram shows sinus rhythm with premature atrial complexe s. MRI of the brain identified a 9-mm acute left thalamic stroke. His MRA of the head and neck show ed no significant abnormalities. His blood work included normal complete blood count with differenti al, repeated three times, normal coagulation panel. Chemistries essentially unremarkable. Glucose r anged 97 to 108. Liver function studies were unremarkable. Total cholesterol 215, LDL cholesterol 1 12, HDL cholesterol 91, and TSH 3.83. Urinalysis showed trace of blood, otherwise normal. His drug screen is negative. COVID testing is negative. Past Medical History: Hypertension. Allergies: NO KNOWN DRUG ALLERGIES. Medications: Tylenol No.3 every four hours as needed. Bactrim DS one twice daily. Past Surgical History: Hernia repair. Family History: Heart disease. Brother with stroke and heart disease in father. Social History: The patient smokes tobacco cigarettes daily and he drinks alcohol on a regular basis and actually drinks heavily at one point and he still to be doing so and drinks caffeinated beverage s. Review of Systems: Aside from mentioned, no recent fevers or chills. No nausea, vomiting, or myalgias. No arthralgias. No rash. No headache. No weight change. He has numbness, weakness, and incoordination is noted. Physical Examination: Vital Signs: Blood pressure 189/92, pulse 84, respiratory rate 18, temperature 97.5, and oxygen satu ration 98% with height 5 feet 10 inches and weight 147 pounds. General: Mr. Arzate is actually in bed. He did stand and ambulate. HEENT: He is normocephalic, atraumatic. Sclerae anicteric. Oropharynx is moist and pink. Neck: Supple. Chest: Clear. Heart: Regular. Extremities: Show no clubbing, cyanosis, or edema. Neurological: He is alert and oriented to person, place, and situation. Follows all commands. Appr opriate cranial nerves showed no focal deficits 2 through 12. Motor in upper extremities, 5/5 proxim ally and distally; in the lower extremities, actually 5/5 proximal and distally. A subtle decrease t o light touch temperature in the right lower compared to upper extremity and subtle decrease to light touch in the right upper compared to lower extremity. Coordination intact. Gait, slight difficulty with tandem gait, otherwise intact and reflexes are symmetric and intact. Assessment: Mr. Arzate is a 70-year-old patient with risk factors of hypertension, cigarette smoking, alcohol use, and a left thalamic stroke producing a sensory deficit as noted. Plan: 1.Aspirin, Plavix, folic acid as indicated. 2.He is instructed to stop alcohol and tobacco use. 3.Hydrate 8 to 10 glasses of water daily. 4.He may benefit from aggressive outpatient physical therapy. 5.He should follow up with Dr. Vargas in clinic one month after discharge. NICOLE/SOPHIE Voice ID: [id number] Report ID: [id number]
--- NOTE | 2021-02-20 07:45 | ECHO ---
HEIGHT: 5 ft 10 in WEIGHT: 147 lb 6.4 oz DATE OF STUDY: 02/19/[address]: Garland Garcia 2-DIMENSIONAL: YES M.MODE: YES DOPPLER: YES COLOR FLOW: YES TDS: NO PORTABLE: NO DEFINITY: NO BUBBLE STUDY: NO DIAGNOSIS: STROKE CARDIAC HISTORY: CATHERIZATION: SURGERY: PROSTHETIC VALVE: PACEMAKER: MEASUREMENTS (cm) DIASTOLIC (NORMALS) SYSTOLIC (NORMALS) IVSd 1.0 (0.6-1.2) LA Diam 4.5 (1.9-4.0) LVEF 67% LVIDd 3.0 (3.5-5.7) LVIDs 1.9 (2.0-3.5) %FS 36% LVPWd 1.0 (0.6-1.2) Ao Diam 3.2 (2.0-3.7) 2 DIMENSIONAL ASSESSMENT: RIGHT ATRIUM: NORMAL LEFT ATRIUM: DILATED RIGHT VENTRICLE: NORMAL LEFT VENTRICLE: NORMAL TRICUSPID VALVE: NORMAL MITRAL VALVE: NORMAL PULMONIC VALVE: NORMAL AORTIC VALVE: NORMAL PERICARDIAL EFFUSION: NONE AORTIC ROOT: NORMAL LEFT VENTRICULAR WALL MOTION: NORMAL DOPPLER/COLOR FLOW: MILD MITRAL AND TRICUSPID REGURGITATION. COMMENTS: ATRIAL FIBRILLATION. NORMAL LEFT VENTRICULAR EJECTION FRACTION. LEFT ATRIAL ENLARGEMENT. NO THROMBUS. TECHNOLOGIST: Jai CALIX
== END 2021-02-19 18:25 | disposition home or self-care (01) ==
LOC: ER 17:51 → ERHOLD 20:05 → 2ND 22:04
PROVIDERS: ADMIT Internal Medicine; ATTEND Internal Medicine
DX: I63.9 Cerebral infarction, unspecified (principal); G81.91 Hemiplegia, unspecified affecting right dominant side; R20.2 Paresthesia of skin; R29.703 NIHSS score 3; I10 Essential (primary) hypertension; F17.220 Nicotine dependence, chewing tobacco, uncomplicated
CPT/HCPCS: 36415; 70450; 70544; 70549; 70553; 71045; 80048; 80053; 80061; 80076; 80307; 81003; 81015; 82550; 82947; 83735; 83880; 84100; 84132; 84436; 84439; 84443; 84484; 85025; 85610; 85730; 93005; 93306; 93880; 94760; 96365; 96366; 97112; 97161; 99285; A9577; G0378; J1650; U0003

== ENCOUNTER 2023-01-07 17:45 | Observation (INO) | payer OTHER ==
--- OUTSIDE RECORDS SUMMARY | 2023-01-07 17:49 | XMS REPORT | Continuity of Care Document ---
:[address] [facility] t Address [address] [place] [address] [place] [id number] Care Team Providers Name Role Phone YASSINE FERREIRA Attending Clinician Unavailable Esther Castellanos Attending Clinician GAY_S Attending Clinician Unavailable Nandini Barrett Attending Clinician JASVIR_S Admitting Clinician Unavailable Payers Payer Name Policy Type Policy Number Effective Date Expiration Date S arleth [employer] 7 [id number] 2023 00:00:00 [employer]out [id number] 2020 (MEDICARE 00:00:00 REPLACEMENT HMO) Problems Condition Condition Condition Status Onset Resolution Last Treating Co mments Source Name Details Category Date Date Treatment Clinician Date Hypertensi Hypertensi Disease Active 2022-04 K elsey on on 0-04 Seybold 00:00: - 00 Externa l Cataract Cataract Disease Active 2022-04 Kelse y 0-04 Seybold 00:00: - 00 Externa l History of History of Disease Active 2022-04 K elsey TIA TIA 0-04 Seybold (transient (transient 00:00: - ischemic ischemic 00 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 Chronic Chronic Problem Active Common kidney kidney Spirit disease, disease, - [facility] unspecifie unspecifie St d CKD d CKD [facility] Anal Anal Problem Active Common itching itching Spirit - [facility] Prediabete Prediabete Problem Active C sravan s s [facility] Hypertensi Hypertensi Problem Active C ommon on, on, Spirit unspecifie unspecifie - [facility] d type d type [facility] Bilateral Bilateral Problem Active Com mon low back low back Spirit pain pain - [facility] without without St sciatica, sciatica, Luke s unspecifie unspecifie Me dical d d Center chronicity chronicity Snoring Snoring Problem Active Common [facility] Skin Skin Problem Active Common lesion lesion [facility] Hyperglyce Hyperglyce Problem Active C ommon jamir jamir [facility] Rash and Rash and Problem Active Commo n nonspecifi nonspecifi Sp jt c skin c skin - eruption eruption [facility] Hyperchole Hyperchole Problem Active C sravan sterolemia sterolemia Sp jt [facility] History of History of Problem Active C ommaryana kidney kidney Spirit stones stones [facility] Hepatitis Hepatitis Problem Active Com mon B B [facility] Sinus Sinus Problem Active Common problem problem [facility] Induration Induration Diagnosis Active Common penis penis Spirit plastica plastica [facility] Benign Benign Diagnosis Active Common prostatic prostatic Spir it hyperplasi hyperplasi - [facility] a without a without [facility] urinary urinary Medical tract tract Center symptoms symptoms ED ED Problem Active Common (erectile (erectile Spir it dysfunctio dysfunctio - [facility] n) n) [facility] Allergies, Adverse Reactions, Alerts This patient has no known allergies or adverse reactions. Social History Social Habit Start Date Stop Date Quantity Comments Source Sexual orientation Cathy Blackmon - External History of tobacco Snuff User Cathy Blackmon use - External Tobacco use and 2023-01-07 2023-01-07 User of smokeless Ke alysa Blackmon exposure 00:00:00 00:00:00 tobacco - External Alcohol intake 2023-01-07 2023-01-07 .57 /d Cathy adame 00:00:00 00:00:00 - External Education 2023-01-07 2023-01-07 14 Cathy Blackmon 00:00:00 00:00:00 - External Alcohol Comment 2023-01-07 2023-01-07 occasionally Cathy Blackmon 00:00:00 00:00:00 - External History of Social 2023-01-06 2023-01-06 Cathy Blackmon function 00:00:00 00:00:00 - External Sex [birth year] At [birth year] Cathy isbell 00:00:00 00:00:00 - External Smoking Status Start Date Stop Date Source Never smoked tobacco Cathy garrett - External Medications Ordered Filled Start Stop Current Ordering Indication Dosage Frequency Signature Comments Components Source Medication Medication Date Date Medication? Clinician (SIG) Name Name Aspirin 81 2022-04 Yes 81mg Take 1 Kelse y MG oral 0-04 tablet (81 Seybol d Tablet 16:55: mg total) - Delayed 51 by mouth Externa Response daily. l Telmisartan 2022-04 Yes [id number] 80mg Take 1 Cathy 80 MG oral 0-04 tablet (80 Sey bold Tablet 00:00: mg total) - 00 by mouth Externa daily. l Triamcinolo Triamcinolo Yes Adeline 1 Common ne ne 9-14 Julia applicatio Spiri t Acetonide Acetonide 00:00: n to - C HI 00 affected [facility] ProAir HFA ProAir HFA Yes Adeline 2 puffs as Common Julia needed [facility] Amlodipine Amlodipine Yes Adeline 1 tablet Common Besylate Besylate Julia Spi rit [facility] Lisinopril- Lisinopril- Yes Adeline 1 tablet Common Hydrochloro Hydrochloro Julia Spirit thiazide thiazide [facility] Metoprolol Metoprolol Yes Adeline 1 tablet Common Succinate Succinate [place] S pirit ER ER [facility] Tessalon Tessalon Yes Adeline 1 capsule C ommon Perles Perles [place] as needed Sp jt [facility] Levofloxaci Levofloxaci Yes Adeline 1 tablet Common n n [place] [facility] Atorvastati Atorvastati Yes Adeline 1 tablet Common n Calcium n Calcium [place] in evening [facility] Vital Signs Vital Name Observation Time Observation Value Comments Source Systolic blood 2023-01-07 21:46:00 160 mm[Hg] Cathy Seybold - pressure External Diastolic blood 2023-01-07 21:46:00 95 mm[Hg] Scott badillo Seybold - pressure External Heart rate 2023-01-07 21:33:00 120 /min Cathy iveybold - External Body temperature 2023-01-07 21:33:00 37.06 Susana Maria C ivey Seybold - External Respiratory rate 2023-01-07 21:33:00 20 /min Maria C ivey Seybold - External Body height 2023-01-07 21:33:00 175.3 cm Cathy iveybold - External Body weight 2023-01-07 21:33:00 59.875 kg Cathy iveyboashlee - External BMI 2023-01-07 21:33:00 19.49 kg/m2 Cathy iveyboashlee - External Oxygen saturation in 2023-01-07 21:33:00 99 /min Cathy Blackmon - Arterial blood by External Pulse oximetry Procedures This patient has no known procedures. Plan of Care Planned Activity Planned Date Details Comments Source Encounters Start End Encounter Admission Attending Care Care Encounter Source Date/Time Date/Time Type Type Clinicians Facility Department ID 2023-01-07 2023-01-07 Outpatient CATHY FERREIRA [id number] Cathy 16:15:00 16:15:00 YASSINE forte 2022-09-03 2022-09-03 Care Esther [id number]. [id number]. CLAC [id number] [facility] 21:00:00 21:30:00 Coordinati Caccamise [id number] Medical on Non [id number] Billable [id number] 2022-04-25 2022-04-25 Care Esther [id number]. [id number]. CLAC [id number] [facility] 22:00:00 22:30:00 [employer]Dem[employer] Caccamise [id number] Medical [id number] 2022-04-052022-04-05 Outpatient GAYLORD_S DMG DMG [id number] [facility] 00:00:00 00:00:00 1231 Medica l Group 2022-04-05 2022-04-05 Outpatient GAYLORD_S DMG DMG [id number] [facility] 00:00:00 00:00:00 0506 Medica l Group 2021-10-18 2021-10-18 Outpatient GAYLORD_S DMG DMG [id number] -2021 [facility] 00:00:00 00:00:00 0715 Medica l Group 2021-03-07 2021-03-07 Outpatient GAYLORD_S DMG DMG [id number] -2020 [facility] 11:02:00 11:02:00 1202 Medica l Group 2021-01-07 2021-01-07 GINETTE Coulterah [id number]. [id number]. CLAC [id number] [facility] 15:00:00 15:30:00 Jasvir [id number] [id number] 2020-11-29 2020-11-29 Outpatient GAYLORD_S DMG DMG [id number] -2020 [facility] 12:04:00 12:04:00 0826 Medica l Group 2019-08-18 2019-08-18 [facility] [id number] Common 14:00:00 14:00:00 t Specialty/U Sp jt Specialty rology - [facility]rology Clinic [facility] 2018-11-24 2018-11-24 [place] [id number] Common 13:40:00 13:40:00 t [facility] Medicine [facility] Results This patient has no known results.
[2023-01-07 18:10] LABS: Absolute Lymphocytes (CBC) 2.4 K/uL (0.7-4.9); Lymphocytes % 22.9 % (15.3-44.8); MCV 92.8 fL (80-100); MPV 8.4 fL (7.6-11.3); Platelets 207 thou/uL (152-406); RBC Red Blood Cell Count 4.74 M/uL (4.33-5.43)
[2023-01-07] MEDS ORDERED: NA CHLORIDE 0.9% 1,000 ML ONE (18:26)
[2023-01-07] MEDS ORDERED: METOPROLOL TAR 50 MG TAB ONE (18:26)
[2023-01-07] MEDS ORDERED: METOPROLOL TARTRATE 5 MG/5 ML INJ IV ONE ×2 (18:26→19:08)
[2023-01-07 18:30] LABS: Potassium 3.3 mEq/L (3.5-5.1); Troponin High Sensitivity 32.7 pg/mL (<58.9)
[2023-01-07 18:47] LABS: Specific Gravity 1.006 (1.005-1.030); Urine Bacteria None Seen /HPF (<20); Urine Bilirubin NEGATIVE (Negative); Urine Blood 2+ (Negative); Urine Clarity Clear (Clear); Urine Color Colorless (Yellow); Urine Crystals Unidentified Few /HPF (None Seen); Urine Glucose NEGATIVE (Negative); Urine Mucus Slight /HPF (None Seen); Urine Protein NEGATIVE (Negative); Urine Urobilinogen Normal (Normal)
--- NOTE | 2023-01-07 18:47 | RAD REPORT ---
EXAM DESCRIPTION: Jimbo Single View01/07/2023 6:38 pm CLINICAL HISTORY: Palpitations COMPARISON: 2020 FINDINGS: The lungs appear clear of acute infiltrate. The heart is normal size IMPRESSION: No acute abnormalities displayed
--- NOTE | 2023-01-07 19:03 | ER ---
Nurse's Notes [facility] Sj Name: José Miguel Arzate Age: 72 yrs Sex: Male : 1950 Arrival Date: 01/07/2023 Time: 17:45 Bed 5 Private MD: Diagnosis: Essential (primary) hypertension;Persistent atrial fibrillation-new onset;Hypokalemia Presentation: 01/07 17:45 Chief complaint: EMS states: PATIENT FROM DOCTOR OFFICE SENT TO ER FOR AFIB RVR HR 150. db EMS GAVE 10 MG CARDIZEM IV. PT IN NAD. DENIES PAIN. Coronavirus screen: Vaccine status: Patient reports receiving the 2nd dose of the covid vaccine. Client denies travel out of the [place] in the last 14 days. At this time, the client does not indicate any symptoms associated with coronavirus-19. Ebola Screen: Patient negative for fever greater than or equal to 101.5 degrees Fahrenheit, and additional compatible Ebola Virus Disease symptoms Patient denies exposure to infectious person. Patient denies travel to an Ebola-affected area in the 21 days before illness onset. No symptoms or risks identified at this time. Initial Sepsis Screen: Does the patient meet any 2 criteria? No. Patient's initial sepsis screen is negative. Does the patient have a suspected source of infection? No. Patient's initial sepsis screen is negative. Risk Assessment: Do you want to hurt yourself or someone else? Patient reports no desire to harm self or others. Onset of symptoms was January 07, 2023. Care prior to arrival: Medication(s) given: CARDIZEM 10 MG IVP IV initiated. 18 GA, in the right antecubital area. 17:45 Method Of Arrival: EMS: [facility] db 17:45 Acuity: KAY 2 db Triage Assessment: 17:45 General: Appears in no apparent distress. comfortable, Behavior is calm, cooperative. db Neuro: Level of Consciousness is awake, alert. Cardiovascular: Reports None Capillary refill < 3 seconds Clubbing of nail beds is present Patient's skin is warm and dry. Rhythm is atrial fibrillation with rapid ventricular response. Respiratory: Airway is patent Respiratory effort is even, unlabored, Respiratory pattern is regular, symmetrical. GI: No deficits noted. No signs and/or symptoms were reported involving the gastrointestinal system. : No deficits noted. No signs and/or symptoms were reported regarding the genitourinary system. : No deficits noted. Derm: No deficits noted. No signs and/or symptoms reported regarding the dermatologic system. Musculoskeletal: No deficits noted. No signs and/or symptoms reported regarding the musculoskeletal system. 18:04 Pain: Denies pain. db Historical: - PMHx: 18:04 Hypertensive disorder; Cataract; HERNIA; Transient cerebral ischemia; db - Immunization history:: Adult Immunizations unknown. - Social history:: Smoking status: Patient reports use of chewing tobacco. Screenin:06 [facility] ED Fall Risk Assessment (Adult) History of falling in the last 3 months, db including since admission No falls in past 3 months (0 pts) Score/Fall Risk Level 0 - 2 = Low Risk Oriented to surroundings, Maintained a safe environment. Abuse screen: Denies threats or abuse. Denies injuries from another. Nutritional screening: No deficits noted. Tuberculosis screening: No symptoms or risk factors identified. Assessment: 18:06 Reassessment: Patient appears in no apparent distress at this time. Patient and/or db family updated on plan of care and expected duration. Pain level reassessed. Patient is alert, oriented x 3, equal unlabored respirations, skin warm/dry/pink. SEE TRIAGE FOR INITIAL ASSESSMENT. Neuro: Level of Consciousness is awake, alert, obeys commands, Oriented to person, place, time, situation. 18:32 Reassessment: Patient appears in no apparent distress at this time. Patient and/or db family updated on plan of care and expected duration. Pain level reassessed. Patient is alert, oriented x 3, equal unlabored respirations, skin warm/dry/pink. Vital Signs: 17:45 BP 161 / 135; Pulse 128; Resp 18; Temp 98.5(O); Pulse Ox 100% on R/A; Weight 59.87 kg db (R); Height 5 ft. 9 in. ; Pain 0/10; 18:15 BP 179 / 107; Pulse 120; Resp 18; Pulse Ox 100% on R/A; db 18:20 BP 189 / 115; Pulse 120; Resp 18; Pulse Ox 100% on R/A; db 20:05 BP 170 / 102; Pulse 96; Resp 19 S; Pulse Ox 100% on R/A; rv 20:28 BP 170 / 102; Pulse 100; Resp 18; Temp 98; Pulse Ox 100% on R/A; rv 17:45 Body Mass Index 19.49 (59.87 kg, 175.26 cm) db 17:45 Pain Scale: Adult db ED Course: 17:45 Arm band placed on Patient placed in an exam room. db 17:52 Patient arrived in ED. iw 17:57 Amparo Tong, RN is Primary Nurse. db 18:00 Hoang Crabtree MD is Attending Physician. gm 18:04 Triage completed. db 18:06 Patient has correct armband on for positive identification. Bed in low position. Call db light in reach. Side rails up X 1. Client placed on continuous cardiac and pulse oximetry monitoring. NIBP monitoring applied. 18:06 Maintain EMS IV. Dressing intact. Good blood return noted. Site clean \T\ dry. Gauge \T\ db site: 18 G RIGHT AC. 18:40 XRAY Chest (1 view) In Process Unspecified. EDMS 18:58 Primary Nurse role handed off by Amparo Tong RN bp 18:58 Jaime Allison, JACKIE is Primary Nurse. bp 19:01 Sintia Avalos MD is Hospitalizing Provider. gm 19:25 Serafin Mario MD is Hospitalizing Provider. gm 20:26 No provider procedures requiring assistance completed. Patient admitted, IV remains in rv place. Administered Medications: 18:15 Drug: NS 0.9% IV 1000 ml IV at 125 ml/hr continuous Route: IV; Rate: 125 ml/hr; Site: db right forearm; 20:27 Follow up: IV Status: Infusion continued upon admission rv 18:15 Drug: Metoprolol IVP 5 mg IVP once; Hold for SBP <100 or HR <60. Route: IVP; Site: db right forearm; 20:27 Follow up: Response: No adverse reaction rv 18:15 Drug: Metoprolol PO 50 mg PO once Route: PO; db 20:27 Follow up: Response: No adverse reaction rv 19:16 Drug: Potassium PO Effervescent Tablet 50 mEq PO once; dissolve in 4 ounces of water or rv juice Route: PO; 20:27 Follow up: Response: No adverse reaction rv 19:16 Drug: Metoprolol IVP 5 mg IVP once; Hold for SBP <100 or HR <60. Route: IVP; Site: right forearm; 20:27 Follow up: Response: No adverse reaction rv 19:17 Drug: Famotidine IVP 20 mg IVP once; dilute with 10 mL 0.9% NaCl; give over 2 minutes rv Route: IVP; Site: right forearm; 20:27 Follow up: Response: No adverse reaction rv 19:17 CANCELLED (Duplicate Order): potassiumeffervescent tablet 50 meq PO once; dissolve in 4 rv ounces of water or juice 19:48 Drug: hydrALAZINE PO 10 mg PO once Route: PO; lg3 20:26 Follow up: Response: No adverse reaction rv 19:48 Drug: hydrALAZINE IVP 10 mg IVP once Route: IVP; Site: right antecubital; lg3 20:26 Follow up: Response: No adverse reaction rv 20:05 Drug: Enoxaparin Sub-Q 1 mg/kg Sub-Q once Route: Sub-Q; Site: abdomen; rv 20:27 Follow up: Response: No adverse reaction rv 20:05 Drug: Metoprolol IVP 5 mg IVP once; Hold for SBP <100 or HR <60. Route: IVP; Site: rv right antecubital; 20:27 Follow up: Response: No adverse reaction rv Medication: 18:06 VIS not applicable for this client. db Outcome: 19:02 Decision to Hospitalize by Provider. gm 20:26 Admitted to Med/surg accompanied by seth, via wheelchair, room 228, with chart, Report rv called to CESAR MEJIA 20:26 Condition: good 20:26 Instructed on the need for admit, 20:28 Patient left the ED. rv Signatures: Dispatcher [employer] Hoang Lindo MD MD cha Williams, Irene, RN JACKIE Jaime Allison RN RN bp Vicente, Ronaldo, RN RN rv Lexi Leon RN RN lg3 Amparo Tong RN RN db Corrections: (The following items were deleted from the chart) 18:05 18:04 PMHx: Transient cerebral ischemia; db db
--- NOTE | 2023-01-07 19:03 | EDPHYS ---
Physician Documentation [facility] Name: José Miguel Arzate Age: 72 yrs Sex: Male : 1950 Arrival Date: 01/07/2023 Time: 17:45 Bed 5 Private MD: ED Physician Hoang Crabtree HPI: 01/07 18:56 This 72 yrs old Male presents to ER via EMS with complaints of Palpitations. gm Historical: - PMHx: 18:04 Hypertensive disorder; Cataract; HERNIA; Transient cerebral ischemia; db - Immunization history:: Adult Immunizations unknown. - Social history:: Smoking status: Patient reports use of chewing tobacco. ROS: 18:57 Constitutional: Negative for fever, chills, and weight loss, Eyes: Negative for injury, gm pain, redness, and discharge, ENT: Negative for injury, pain, and discharge, Neck: Negative for injury, pain, and swelling, Respiratory: Negative for shortness of breath, cough, wheezing, and pleuritic chest pain, Abdomen/GI: Negative for abdominal pain, nausea, vomiting, diarrhea, and constipation, Back: Negative for injury and pain, : Negative for injury, bleeding, discharge, and swelling, MS/Extremity: Negative for injury and deformity, Skin: Negative for injury, rash, and discoloration, Neuro: Negative for headache, weakness, numbness, tingling, and seizure, Psych: Negative for depression, anxiety, suicide ideation, homicidal ideation, and hallucinations, Allergy/Immunology: Negative for hives, rash, and allergies, Endocrine: Negative for neck swelling, polydipsia, polyuria, polyphagia, and marked weight changes, Hematologic/Lymphatic: Negative for swollen nodes, abnormal bleeding, and unusual bruising, 18:57 Cardiovascular: Positive for chest pain, palpitations, Exam: 18:57 Constitutional: This is a well developed, well nourished patient who is awake, alert, gm and in no acute distress. Head/Face: Normocephalic, atraumatic. Eyes: Pupils equal round and reactive to light, extra-ocular motions intact. Lids and lashes normal. Conjunctiva and sclera are non-icteric and not injected. Cornea within normal limits. Periorbital areas with no swelling, redness, or edema. ENT: Nares patent. No nasal discharge, no septal abnormalities noted. Tympanic membranes are normal and external auditory canals are clear. Oropharynx with no redness, swelling, or masses, exudates, or evidence of obstruction, uvula midline. Mucous membranes moist. Neck: Trachea midline, no thyromegaly or masses palpated, and no cervical lymphadenopathy. Supple, full range of motion without nuchal rigidity, or vertebral point tenderness. No Meningismus. Chest/axilla: Normal chest wall appearance and motion. Nontender with no deformity. No lesions are appreciated. Respiratory: Lungs have equal breath sounds bilaterally, clear to auscultation and percussion. No rales, rhonchi or wheezes noted. No increased work of breathing, no retractions or nasal flaring. Abdomen/GI: Soft, non-tender, with normal bowel sounds. No distension or tympany. No guarding or rebound. No evidence of tenderness throughout. Back: No spinal tenderness. No costovertebral tenderness. Full range of motion. Male : Normal genitalia with no discharge or lesions. Skin: Warm, dry with normal turgor. Normal color with no rashes, no lesions, and no evidence of cellulitis. MS/ Extremity: Pulses equal, no cyanosis. Neurovascular intact. Full, normal range of motion. Neuro: Awake and alert, GCS 15, oriented to person, place, time, and situation. Cranial nerves II-XII grossly intact. Motor strength 5/5 in all extremities. Sensory grossly intact. Cerebellar exam normal. Normal gait. Psych: Awake, alert, with orientation to person, place and time. Behavior, mood, and affect are within normal limits. 18:57 Cardiovascular: Rate: tachycardic, actual rate is 120 bpm, Rhythm: irregularly irregular, Pulses: Pulses are 4+ in bilateral radial, brachial, femoral, popliteal, posterior tibial and and dorsalis pedis arteries.. Heart sounds: normal, Edema: is not appreciated, JVD: is not appreciated, 18:57 ECG was reviewed by the Attending Physician. Vital Signs: 17:45 BP 161 / 135; Pulse 128; Resp 18; Temp 98.5(O); Pulse Ox 100% on R/A; Weight 59.87 kg db (R); Height 5 ft. 9 in. ; Pain 0/10; 18:15 BP 179 / 107; Pulse 120; Resp 18; Pulse Ox 100% on R/A; db 18:20 BP 189 / 115; Pulse 120; Resp 18; Pulse Ox 100% on R/A; db 20:05 BP 170 / 102; Pulse 96; Resp 19 S; Pulse Ox 100% on R/A; rv 20:28 BP 170 / 102; Pulse 100; Resp 18; Temp 98; Pulse Ox 100% on R/A; rv 17:45 Body Mass Index 19.49 (59.87 kg, 175.26 cm) db 17:45 Pain Scale: Adult db MDM: 18:00 Patient medically screened. gm 18:58 LOWELL Risk Score: 1 - Patient's age is greater or equal to 65, 1 - 3 or more CAD risk gm factors, [Family HX] [HTN] [Elevated Cholesterol] 1 - Known CAD, Total Score = 3. Differential diagnosis: arrythmia, dehydration, stress disorder. Data reviewed: vital signs, nurses notes, EMS record, lab test result(s), EKG, radiologic studies, plain films. Consideration of Admission/Observation Patient was admitted/placed on observation. Escalation of care including admission/observation considered. Management of patient was discussed with the following: Primary Care Provider: dr swapnil houston. I considered the following discharge prescriptions or medication management in the emergency department Medications were administered in the Emergency Department. See MAR. Independent interpretation of the following test(s) in the Emergency Department EKG: See my EKG interpretation above. Test considered but Not performed:. Historians other than the Patient: EMS: ems well informed. Care significantly affected by the following chronic conditions: Hypertension. 01/07 17:54 Order name: Basic Metabolic Panel; Complete Time: 18:33 01/07 17:54 Order name: CBC with Diff; Complete Time: 18:33 01/07 17:54 Order name: Troponin HS; Complete Time: 18:33 01/07 18:03 Order name: TSH; Complete Time: 19:27 [facility] 01/07 18:03 Order name: Urinalysis w/ reflexes; Complete Time: 18:54 [facility] 01/07 17:54 Order name: XRAY Chest (1 view); Complete Time: 18:54 01/07 17:54 Order name: EKG; Complete Time: 17:54 01/07 19:32 Order name: CONS Physician Consult EDCT 01/07 17:54 Order name: Cardiac monitoring; Complete Time: 17:57 01/07 17:54 Order name: EKG - Nurse/Tech; Complete Time: 17:57 iw 01/07 17:54 Order name: IV Saline Lock; Complete Time: 17:57 iw 01/07 17:54 Order name: Labs collected and sent; Complete Time: 17:57 iw 01/07 17:54 Order name: O2 Per Protocol; Complete Time: 17:57 iw 01/07 17:54 Order name: O2 Sat Monitoring; Complete Time: 17:57 iw EC:57 Rate is 109 beats/min. Rhythm is irregularly irregular. QRS [place] is Normal. GA interval gm is normal. QRS interval is normal. QT interval is normal. No Q waves. T waves are Normal. No ST changes noted. Clinical impression: Atrial Fibrillation and No evidence of ischemia. Interpreted by me. Reviewed by me. Administered Medications: 18:15 Drug: NS 0.9% IV 1000 ml IV at 125 ml/hr continuous Route: IV; Rate: 125 ml/hr; Site: db right forearm; 20:27 Follow up: IV Status: Infusion continued upon admission rv 18:15 Drug: Metoprolol IVP 5 mg IVP once; Hold for SBP <100 or HR <60. Route: IVP; Site: db right forearm; 20:27 Follow up: Response: No adverse reaction rv 18:15 Drug: Metoprolol PO 50 mg PO once Route: PO; 20:27 Follow up: Response: No adverse reaction rv 19:16 Drug: Potassium PO Effervescent Tablet 50 mEq PO once; dissolve in 4 ounces of water or rv juice Route: PO; 20:27 Follow up: Response: No adverse reaction rv 19:16 Drug: Metoprolol IVP 5 mg IVP once; Hold for SBP <100 or HR <60. Route: IVP; Site: rv right forearm; 20:27 Follow up: Response: No adverse reaction rv 19:17 Drug: Famotidine IVP 20 mg IVP once; dilute with 10 mL 0.9% NaCl; give over 2 minutes rv Route: IVP; Site: right forearm; 20:27 Follow up: Response: No adverse reaction rv 19:17 CANCELLED (Duplicate Order): potassiumeffervescent tablet 50 meq PO once; dissolve in 4 rv ounces of water or juice 19:48 Drug: hydrALAZINE PO 10 mg PO once Route: PO; lg3 20:26 Follow up: Response: No adverse reaction rv 19:48 Drug: hydrALAZINE IVP 10 mg IVP once Route: IVP; Site: right antecubital; lg3 20:26 Follow up: Response: No adverse reaction rv 20:05 Drug: Enoxaparin Sub-Q 1 mg/kg Sub-Q once Route: Sub-Q; Site: abdomen; rv 20:27 Follow up: Response: No adverse reaction rv 20:05 Drug: Metoprolol IVP 5 mg IVP once; Hold for SBP <100 or HR <60. Route: IVP; Site: rv right antecubital; 20:27 Follow up: Response: No adverse reaction rv Disposition Summary: 01/07/23 19:02 Hospitalization Ordered Notes: Hospitalization Status: Inpatient Admission gm Location: Telemetry/MedSurg (Inpatient) gm Condition: Stable gm Problem: new gm Symptoms: have improved gm Bed/Room Type: Standard gm Provider: Serafin Mario(01/07/23 19:25) gm Room Assignment: [facility](01/07/23 19:59) Diagnosis - Essential (primary) hypertension gm - Persistent atrial fibrillation - new onset gm - Hypokalemia gm Forms: - Medication Reconciliation Form gm - SBAR form gm - Leadership Thank You Letter gm Signatures: Dispatcher [employer] EDHoang Herrera MD MD cha Williams, Irene, RN RN iw Garcia, Cindy, RN RN cg Vicente, Ronaldo, RN RN rv Gibson, Lacie, RN RN lg3 Amparo Tong RN RN db Moosa, Christy, FNP NON DESTRUCTIVE EVALUATION SPECIALIST cm12 Corrections: (The following items were deleted from the chart) 18:05 18:04 PMHx: Transient cerebral ischemia; db db 19:17 18:55 Potassium PO Effervescent Tablet 50 mEq PO once; dissolve in 4 ounces of water or rv juice ordered. gm 19:25 19:02 Sintia Avalos cha [facility] 19:59 19:02 gm
[2023-01-07] MEDS ORDERED: POTASSIUM 25 MEQ EFFERV TAB ONE (19:08)
[2023-01-07] MEDS ORDERED: FAMOTIDINE 20 MG/2 ML VIAL IV ONE (19:08)
[2023-01-07] MEDS ORDERED: ENOXAPARIN 60 MG/0.6 ML SQ ONE (19:09)
--- NOTE | 2023-01-07 19:23 | P.HP ---
Certification for Inpatient Patient admitted to: Observation With expected LOS: <2 Midnights Patient will require the following post-hospital care: None Practitioner: I am a practitioner with admitting privileges, knowledge of patient current condition, hospital course, and medical plan of care. Services: Services provided to patient in accordance with Admission requirements found in Title 42 Section 412.3 of the Code of Federal Regulations Patient History Date of Service: 01/07/23 Reason for admission: Palpitations History of Present Illness: 72-year-old female with a past medical history of TIA, cataract, chewing tobacco, presents to the emergency room with palpitations. He reports palpitations started today 4pm, he was referred by PCP. He reports no history of Atrial fib, he reports he has not been on meds for > 1mo due to change of insurance. He reports Progressively getting worse, made worse with exertion today. He reports palpitations improved which treatment in the emergency room. Denies chest pain, shortness of breath. Nausea vomiting diarrhea. EKG normal sinus rhythm irregular, rate 109, no T wave abnormality, no ST changes noted, atrial fibrillation with no ischemia. ER evaluation patient treated with metoprolol 5 mg IVP x1, treated with metoprolol 50 p.o. x1. Patient treated with Lovenox 1 mg/kg 1834. Laboratory evaluation hypokalemia 3.3 elevated BUN 19 creatinine normal 1.22, estimated GFR 63, calcium normal 8.8, CBC unremarkable, troponin normal at 32.7, chest x-ray no acute abnormality, plan to admit for A-fib RVR, uncontrolled hypertension. Allergies No Known Allergies Allergy (Verified 02/18/21 23:05) Home Medications: Losartan Potassium 25 mg PO BID 02/18/21 Aspirin [Aspirin EC 81 MG] 81 mg PO DAILY #30 tablet. 02/19/21 Atorvastatin Calcium [Lipitor] 80 mg PO BEDTIME #30 tab 02/19/21 Clopidogrel Bisulfate [Plavix] 75 mg PO DAILY #30 tablet 02/19/21 Folic Acid 1 mg PO DAILY #30 tablet 02/19/21 - Past Medical/Surgical History Diabetic: No -: HTN -: hernia repair - Family History Father -: Heart disease Brother -: Stroke - Social History Smoking Status: Current some day smoker Alcohol use: Yes CD- Drugs: No Caffeine use: Yes Review of Systems 10-point ROS is otherwise unremarkable Physical Examination - Physical Exam General: Alert, In no apparent distress, Oriented x3 HEENT: Atraumatic, Normocephalic, PERRLA Neck: Supple, 2+ carotid pulse no bruit Respiratory: Clear to auscultation bilaterally, Normal air movement Cardiovascular: No edema, Normal pulses, Irregular heart rate/rhythm Capillary refill: <2 Seconds Gastrointestinal: Normal bowel sounds, Soft and benign Musculoskeletal: No clubbing, No swelling Integumentary: No rashes, No breakdown - Studies Laboratory Data (last 24 hrs) 01/07/23 01/07/23 17:50 17:50 WBC 10.70 Hgb 15.2 Hct 44.0 Plt Count 207 Sodium 140 Potassium 3.3 L BUN 19 H Creatinine 1.22 Glucose 96 Assessment and Plan - Plan Assessment and plan A-fib RVR Uncontrolled hypertension Hypokalemia Hyperlipidemia Tobacco use DVT prophylaxis Assessment and plan A-fib RVR Uncontrolled hypertension Hyperlipidemia Cardiology consult, telemetry, As needed metoprolol, Lovenox 1 mg/kg, start p.o. Lopressor daily. EKG normal sinus rhythm irregular, rate 109, no T wave abnormality, no ST changes noted, atrial fibrillation with no ischemia. ER evaluation patient treated with metoprolol 5 mg IVP x1, treated with metoprolol 50 p.o. x1. Patient treated with Lovenox 1 mg/kg 1834. troponin normal at 32.7, chest x-ray no acute abnormality Trend troponin, lipid panel in the a.m. Hypokalemia hypokalemia 3.3 Trend electrolytes replace as needed DVT Lovenox Full code Diet cardiac Discharge Plan: Home Plan to discharge in: 24 Hours - Advance Directives Does patient have a Living Will: No Does patient have a Durable POA for Healthcare: No - Code Status/Comfort Care Code Status: Full Code Physician Review: Patient Assessed, Agree with Above Assessment and Plan Critical Care: No Time Spent Managing Pts Care (In Minutes): 50
[2023-01-07] MEDS ORDERED: HYDRALAZINE HCL 10 MG TABLET ONE (19:51)
[2023-01-07] MEDS ORDERED: HYDRALAZINE HCL 20 MG/ML VIAL ONE (19:51)
[2023-01-07] MEDS ORDERED: ACETAMINOPHEN 500 MG TAB PO PRN (20:48)
[2023-01-07] MEDS ORDERED: ONDANSETRON 4 MG/2 ML VIAL IV PRN (20:48)
[2023-01-07] MEDS ORDERED: METOPROLOL TARTRATE 5 MG/5 ML INJ IV PRN (20:48)
[2023-01-07 22:49] VITALS: BMI 19.5
[2023-01-08 03:08] LABS: Absolute Lymphocytes (CBC) 2.5 K/uL (0.7-4.9); Hematocrit 44.1 % (39.6-49.0); Lymphocytes % 25.9 % (15.3-44.8); MCV 93.3 fL (80-100); MPV 8.6 fL (7.6-11.3); Platelets 216 thou/uL (152-406); RBC Red Blood Cell Count 4.73 M/uL (4.33-5.43)
[2023-01-08 03:21] LABS: Magnesium 2.3 mg/dL (1.6-2.4); Potassium 3.6 mEq/L (3.5-5.1)
[2023-01-08] MEDS ORDERED: ENOXAPARIN 60 MG/0.6 ML SQ SCH (06:00)
[2023-01-08] MEDS ORDERED: PNEUMOCOCCAL VACCINE 0.5 ML IMVAC ONE (08:00)
[2023-01-08] MEDS ORDERED: INFLUENZA VACCINE (for 6+ mo) 0.5 ML DOSE IMVAC ONE (08:00)
[2023-01-08] MEDS ORDERED: SOTALOL HCL 80 MG TAB PO SCH (08:33)
[2023-01-08] MEDS ORDERED: METOPROLOL TAR 50 MG TAB PO SCH (09:00)
[2023-01-08] MEDS: APIXABAN 5 MG TABLET PO SCH ×2 (10:45→20:36)
--- NOTE | 2023-01-08 11:55 | P.PN ---
Subjective Date of Service: 01/08/23 Chief Complaint: Palpitations Subjective: Improving (Patient is doing well no new complaints) Review of Systems Unremarkable Physical Examination - Vital Signs Temperature: 97.1 F Blood Pressure: 169/98 Pulse: 96 Respirations: 15 Pulse Ox (%): 96 - Physical Exam General: Alert, In no apparent distress, Oriented x3 Cardiovascular: No edema, Regular rate/rhythm, Normal S1 S2 - Studies Laboratory Data (last 24 hrs) 01/07/23 01/07/23 17:50 17:50 WBC 10.70 Hgb 15.2 Hct 44.0 Plt Count 207 Sodium 140 Potassium 3.3 L BUN 19 H Creatinine 1.22 Glucose 96 Assessment And Plan - Current Problems (Diagnosis) (1) Atrial flutter Current Visit: Yes Status: Acute Plan: Patient is 72 years of age apparently got aggravated upset developed atrial flutter ended up in the hospital is doing much better now seen by cardiology plan is to start him on some sotalol 80 mg twice a day with Eliquis. EKG after third dose Labs reviewed unremarkable discharge tomorrow to follow-up with Dr. Garzon in the clinic chest x-ray clear Physician Review: Patient Assessed, Agree with Above Assessment and Plan
[2023-01-08] MEDS: AMLODIPINE 5 MG TAB PO SCH (16:28)
--- NOTE | 2023-01-08 16:59 | EKG ---
Test Date: 2023-01-07 Test Time: 17:51:09 Edge Beader: SAUMYA MEASUREMENT RESULTS: Intervals: Rate: 109 CA: QRSD: 86 QT: 344 QTc: 463 [place]: P: CA: QRS: 48 T: 17 INTERPRETIVE STATEMENTS: Atrial fibrillation with rapid ventricular response Voltage criteria for left ventricular hypertrophy Anteroseptal infarct, age undetermined Abnormal ECG Compared to ECG 02/19/2021 00:03:34 Myocardial infarct finding now present Ventricular premature complex(es) no longer present Incomplete right bundle-branch block no longer present ST (T wave) deviation no longer present Electronically Signed On 01-08-23 16:56:25 CDT by Art Bae
[2023-01-08] MEDS: SOTALOL HCL 80 MG TAB PO SCH (18:13)
[2023-01-08] MEDS ORDERED: POTASSIUM CL SA 10 MEQ TAB PO ONE (21:00)
--- NOTE | 2023-01-08 21:35 | CON ---
Date of Consultation: 01/08/2023 Reason For Consultation: Atrial fibrillation. History Of Present Illness: 72-year-old male, history of TIA, hypertension, dyslipidemia, presented with palpitations, started around 4 o'clock in the morning. Denies having any chest pain or shortnes s of breath, was found to be in atrial fibrillation with rapid ventricular response. Started on meto prolol and his heart rate is better, but still heart is irregular. Has no other symptoms. Past Medical History: As outlined above in the HPI. Medications: Refer consultation sheet for detailed list. Allergies: NO KNOWN DRUG ALLERGIES. Family History: No premature coronary artery disease or cancer. Social History: Active smoker and drinks alcohol periodically. Does not use any drugs. Review of Systems: All systems reviewed, and they were negative except as mentioned in HPI. Physical Examination: Vital Signs: Reviewed. Head and Neck: Pupils are equal, reactive to light. Intact eye movements. No JVD. No cervical lym phadenopathy. Neck is supple. Thyroid is not enlarged. Lungs: Clear to auscultation bilaterally. No rhonchi, rales, or crackles. No accessory muscle use. Heart: Irregularly irregular. No extra sounds. Abdomen: Soft, nontender. Bowel sounds positive. No organomegaly. No masses or hernia. No rigidi ty or rebound. Extremities: There is no edema, clubbing, or cyanosis. Intact pulses. Skin: No rash. No nodule. Neurologic: Alert, awake, oriented x3. No acute focal deficits appreciated. Lymph nodes: No cervical or axillary lymphadenopathy. Investigations: TSH is 2.8. BUN 14, creatinine 1.1. Hemoglobin 15.4. Assessment And Recommendation: 1.Atrial fibrillation with rapid ventricular response. Rate is better. Recommend to start sotalol 80 mg twice a day and Eliquis 5 mg twice a day. Use IV metoprolol p.r.n. for rate control. To do an EKG post third dose to evaluate QTc interval. Further plan to follow. Please obtain an echocardiog nicholas. 2.Hypertension. Blood pressure is elevated. Resume home medications. Adjust as needed. 3.Dyslipidemia. Recommend statin. SR/MODL Voice ID: [id number] Report ID: [id number]
[2023-01-09] MEDS: SOTALOL HCL 80 MG TAB PO SCH (05:49)
[2023-01-09 06:30] VITALS: O2SAT 98
[2023-01-09] MEDS: APIXABAN 5 MG TABLET PO SCH (08:05)
[2023-01-09] MEDS: AMLODIPINE 5 MG TAB PO SCH (08:05)
[2023-01-09 09:08] LABS: Potassium 4.1 mEq/L (3.5-5.1)
--- NOTE | 2023-01-09 11:29 | P.DS ---
Admission Date: 01/07/23 Discharge Date: 01/09/23 Disposition: DC HOME/HOME HEALTH CARE Discharge Condition: GOOD Reason for Admission: Palpitations - Problems (1) Atrial flutter Current Visit: Yes Status: Acute Qualifiers: Atrial flutter type: typical Qualified Code(s): I48.3 - Typical atrial flutter Brief History of Present Illness: Patient is 72 years of age admitted with atrial flutter Hospital Course: Patient was admitted to the hospital did well was started on sotalol anticoagulation blood pressure was also elevated and was started on an JUST[place] inhibitor The time of discharge he was doing well seen by cardiology no new complaints rate controlled blood pressure still elevated he is to resume his telmisartan on examination alert oriented x3 chest clear cardiovascular system heart sounds normal saturation satisfactory his chemistries are reviewed/he is to be discharged home on sotalol 80 twice daily in addition to Eliquis EKG on admission Atrial fibrillation with rapid ventricular response Voltage criteria for left ventricular hypertrophy Anteroseptal infarct, age undetermined Abnormal ECG Compared to ECG 02/19/2021 00:03:34 Myocardial infarct finding now present Ventricular premature complex(es) no longer present Incomplete right bundle-branch block no longer present ST (T wave) deviation no longer present Electronically Signed On 01-08-23 16:56:25 CDT by Art Moon Vital Signs/Physical Exam: Temp Pulse Resp BP Pulse Ox 98.0 F 85 16 157/85 H 100 01/09/23 08:00 01/09/23 08:05 01/09/23 08:00 01/09/23 08:05 01/09/23 08:00 Laboratory Data at Discharge: WBC 9.70 thou/uL (4.3-10.9) 01/08/23 02:00 Hgb 15.2 g/dL (13.6-17.9) 01/08/23 02:00 Hct 44.1 % (39.6-49.0) 01/08/23 02:00 Plt Count 216 thou/uL (152-406) 01/08/23 02:00 Sodium Cancelled 01/09/23 Unknown Potassium Cancelled 01/09/23 Unknown BUN Cancelled 01/09/23 Unknown Creatinine Cancelled 01/09/23 Unknown Glucose Cancelled 01/09/23 Unknown Magnesium 2.3 mg/dL (1.6-2.4) 01/08/23 02:00 Total Bilirubin Cancelled 01/09/23 Unknown AST Cancelled 01/09/23 Unknown ALT Cancelled 01/09/23 Unknown Alkaline Phosphatase Cancelled 01/09/23 Unknown Home Medications: Losartan Potassium 25 mg PO BID 02/18/21 Aspirin [Aspirin EC 81 MG] 81 mg PO DAILY #30 tablet.dr 02/19/21 Atorvastatin Calcium [Lipitor] 80 mg PO BEDTIME #30 tab 02/19/21 Clopidogrel Bisulfate [Plavix*] 75 mg PO DAILY #30 tablet 02/19/21 Folic Acid 1 mg PO DAILY #30 tablet 02/19/21 Apixaban [Eliquis] 5 mg PO BID 30 Days #60 tab 01/09/23 Losartan Potassium 50 mg PO DAILY 30 Days #30 tab 01/09/23 Sotalol HCl [Betapace*] 80 mg PO BID 6AM 6PM 30 Days #60 tab 01/09/23 New Medications: Sotalol HCl [Betapace*] 80 mg PO BID 6AM 6PM 30 Days #60 tab Apixaban [Eliquis] 5 mg PO BID 30 Days #60 tab Losartan Potassium 50 mg PO DAILY 30 Days #30 tab Followup: Leo Gutierrez DO [Primary Care Provider] - Art Bae MD [ACTIVE - CAN ADMIT] -
[2023-01-09 12:08] VITALS: BP 148/94; TEMP 98.8
--- NOTE | 2023-01-09 12:24 | EKG ---
Test Date: 2023-01-08 Test Time: 09:00:08 Cigarette Tipper: CONCHITA MEASUREMENT RESULTS: Intervals: Rate: 95 RI: QRSD: 80 QT: 358 QTc: 449 [place]: P: RI: QRS: 102 T: -57 INTERPRETIVE STATEMENTS: Atrial flutter with variable AV block Rightward axis RSR' or QR pattern in V1 suggests right ventricular conduction delay Minimal voltage criteria for LVH, may be normal variant Septal infarct, age undetermined ST & T wave abnormality, consider inferior ischemia Abnormal ECG Compared to ECG 01/07/2023 17:51:09 Right-axis deviation now present RSR' in V1 or V2 now present ST (T wave) deviation now present Possible ischemia now present Atrial fibrillation no longer present Myocardial infarct finding still present Electronically Signed On 01-09-23 12:21:07 CDT by Art Bae
[2023-01-09] MEDS ORDERED: AMLODIPINE 5 MG TAB PO SCH (16:30)
== END 2023-01-09 13:31 | disposition home health service (06) ==
LOC: ER 17:45 → ERHOLD 19:29 → 2ND 20:07
PROVIDERS: ADMIT Internal Medicine Sleep Medicine; ATTEND Internal Medicine Sleep Medicine
DX: I48.3 Typical atrial flutter (principal); I48.20 Chronic atrial fibrillation, unspecified; I51.7 Cardiomegaly; R94.31 Abnormal electrocardiogram [ECG] [EKG]; I25.2 Old myocardial infarction; I10 Essential (primary) hypertension; E87.6 Hypokalemia; E78.5 Hyperlipidemia, unspecified; F17.210 Nicotine dependence, cigarettes, uncomplicated; H26.9 Unspecified cataract; Z86.73 Personal history of transient ischemic attack (TIA), and cerebral infarction without residual deficits; Z82.3 Family history of stroke; Z82.49 Family history of ischemic heart disease and other diseases of the circulatory system
CPT/HCPCS: 93005 ×2; 85025 ×2; 81001; 80048 ×3; 36415 ×2; 83735; 84443; 84484; 71045; 96372; 99285; J1650 ×2; J0360; J7030; G0378